=== PATIENT | female | born 1930 | race Caucasian/White ===

== ENCOUNTER 2018-03-10 22:30 | Inpatient (IN) | payer OTHER, MEDICARE ==
[~2018-03-10] VITALS: Ht 157.5 cm; Wt 69.4 kg
[~2018-03-10 22:30] MED LIST: ACET-73 PO; ALPR0.25 PO; AMLO2.5T2 PO; CYCL-10 PO; LISI40TA4 PO; MORPHINE 4 MG/ML INJ. SYRINGE IVP ONE; PARO-41 PO; ZOLP10TA2 PO
[2018-03-10 23:23] VITALS: BP_SYST 132
[2018-03-10] MEDS ORDERED: NACL 0.9% 1,000 ML IV ONE (23:45)
[2018-03-10] MEDS ORDERED: PANTOPRAZOLE SODIUM 40 MG/VIAL (PROTONIX) IVP ONE (23:45)
[2018-03-11] MEDS ORDERED: LATA2.5D2 OP (00:09)
[2018-03-11] MEDS ORDERED: TEMA15CA5 PO (00:09)
[2018-03-11] MEDS ORDERED: AMLO5TAB4 PO (00:09)
[2018-03-11] MEDS ORDERED: ASPI-1153 PO (00:09)
[2018-03-11] MEDS ORDERED: FLAX100031 PO (00:09)
[2018-03-11] MEDS ORDERED: METO50TA7 PO (00:09)
[2018-03-11 00:21] LABS: BASOPHILS % (AUTO) 0.5 % (0.0-2.0); EOSINOPHILS % (AUTO) 0.3 % (0.0-4.0); HEMATOCRIT 23.4 % (36-48); HEMOGLOBIN 7.2 g/dL (12.0-16.0); LYMPHOCYTES # (AUTO) 1.3 K/uL (1.0-5.5); LYMPHOCYTES % (AUTO) 15.3 % (20.5-51.5); MEAN CORPUSCULAR HEMOGLOBIN 29 pg (27-31); MEAN CORPUSCULAR HGB CONC 31 % (32-36); MEAN CORPUSCULAR VOLUME 95 fL (79.0-98.0); MONOCYTES # (AUTO) 0.7 K/uL (0.0-1.0); MONOCYTES % (AUTO) 7.8 % (1.7-9.3); NEUTROPHILS # (AUTO) 6.5 K/uL (1.8-7.7); NEUTROPHILS % (AUTO) 76.1 % (40.0-70.0); PLATELET COUNT (AUTO) 285 K/uL (130-430); RED BLOOD CELL COUNT(AUTO) 2.46 MIL/uL (4.2-6.2); RED CELL DISTRIBUTION WIDTH 14.2 % (9.0-15.0); WHITE BLOOD COUNT (AUTO) 8.5 K/uL (4.8-10.8)
[2018-03-11 00:28] LABS: ANION GAP 8 (5-15); CALCIUM 8.4 mg/dL (8.4-11.0); CHLORIDE 107 mmol/L (98-107); CREATININE 0.64 mg/dL (0.55-1.30); GLUCOSE 120 mg/dL (70-99); POTASSIUM 3.8 mmol/L (3.5-5.1); SODIUM SERUM 141 mmol/L (136-145); UREA NITROGEN, BLOOD 36 mg/dL (8-21)
[2018-03-11 00:34] LABS: ALANINE AMINOTRANSFERASE 13 U/L (12-78); ALBUMIN 3.1 g/dL (3.4-4.8); ASPARTATE AMINOTRANSFERASE 15 U/L (10-37); LIPASE 148 U/L (73-393); TOTAL BILIRUBIN 0.4 mg/dL (0.0-1.0)
[2018-03-11] MEDS ORDERED: ACETAMINOPHEN 325 MG TABLET PO PRN (01:00)
[2018-03-11] MEDS ORDERED: ONDANSETRON HCL 4 MG/2 ML VIAL IVP PRN (01:00)
[2018-03-11] MEDS ORDERED: MORPHINE 4 MG/ML INJ. SYRINGE IVP ONE (01:00)
[2018-03-11 02:07] VITALS: BP_SYST 118
[2018-03-11] MEDS: NACL 0.9% 1,000 ML IV SCH ×3 (03:49→18:30)
[2018-03-11 07:00] VITALS: BP_SYST 156
[2018-03-11] MEDS: PANTOPRAZOLE SODIUM 40 MG/VIAL (PROTONIX) IVP SCH (08:05)
[2018-03-11 09:19] LABS: BASOPHILS % (AUTO) 0.3 % (0.0-2.0); EOSINOPHILS % (AUTO) 0.4 % (0.0-4.0); HEMATOCRIT 25.7 % (36-48); HEMOGLOBIN 8.4 g/dL (12.0-16.0); LYMPHOCYTES # (AUTO) 1.2 K/uL (1.0-5.5); MEAN CORPUSCULAR HEMOGLOBIN 31 pg (27-31); MEAN CORPUSCULAR HGB CONC 33 % (32-36); MEAN CORPUSCULAR VOLUME 94 fL (79.0-98.0); MONOCYTES # (AUTO) 0.6 K/uL (0.0-1.0); MONOCYTES % (AUTO) 7.2 % (1.7-9.3); NEUTROPHILS # (AUTO) 7.1 K/uL (1.8-7.7); NEUTROPHILS % (AUTO) 79.1 % (40.0-70.0); PLATELET COUNT (AUTO) 243 K/uL (130-430); RED BLOOD CELL COUNT(AUTO) 2.74 MIL/uL (4.2-6.2); WHITE BLOOD COUNT (AUTO) 8.9 K/uL (4.8-10.8)
[2018-03-11 09:44] LABS: ANION GAP 7 (5-15); CALCIUM 8.1 mg/dL (8.4-11.0); CHLORIDE 108 mmol/L (98-107); CREATININE 0.51 mg/dL (0.55-1.30); GLUCOSE 121 mg/dL (70-99); SODIUM SERUM 142 mmol/L (136-145); UREA NITROGEN, BLOOD 27 mg/dL (8-21)
[2018-03-11 09:45] LABS: ALANINE AMINOTRANSFERASE 16 U/L (12-78); ALBUMIN 3.1 g/dL (3.4-4.8); ASPARTATE AMINOTRANSFERASE 14 U/L (10-37); TOTAL BILIRUBIN 0.6 mg/dL (0.0-1.0)
[2018-03-11 11:29] VITALS: BP_SYST 138
[2018-03-11] MEDS: MORPHINE 2 MG/ML INJ. SYRINGE IVP PRN (11:39)
[2018-03-11 15:42] VITALS: BP_SYST 134
[2018-03-11] MEDS ORDERED: BISACODYL 5 MG TABLET.DR (DULCOLAX) PO ONE (17:00)
[2018-03-11] MEDS ORDERED: GOLYTELY / COLYTE SOLUTION 4 LITERS PO ONE (18:00)
[2018-03-11 20:00] VITALS: BP_SYST 135
[2018-03-11] MEDS ORDERED: NA PHOS,M-B/NA PHOS,DI-BA 118 ML (FLEET ENEMA) RC SCH (23:00)
[2018-03-12] MEDS: PANTOPRAZOLE SODIUM 40 MG/VIAL (PROTONIX) IVP SCH ×3 (00:29→22:35)
[2018-03-12 00:41] VITALS: BP_SYST 144
[2018-03-12] MEDS: MORPHINE 2 MG/ML INJ. SYRINGE IVP PRN (03:33)
[2018-03-12] MEDS ORDERED: SIMETHICONE 40 MG/0.6 ML ML ONE (07:12)
[2018-03-12] MEDS ORDERED: MIDAZOLAM HCL 5 MG/5 ML VIAL ONE (07:12)
[2018-03-12] MEDS ORDERED: MEPERIDINE HCL/PF 100 MG/ML AMP ONE (07:13)
[2018-03-12 07:22] LABS: INR 1.1 (0.8-1.2); PROTHROMBIN TIME 10.9 SECS (9.5-12.5); TOTAL IRON BIND. CAPACITY 126 ug/dL (250-450)
[2018-03-12 07:33] LABS: ALBUMIN 2.6 g/dL (3.4-4.8); BILIRUBIN,DIRECT 0.2 mg/dL (0.0-0.3); THYROID STIMULATING HORMONE 0.59 uIu/mL (0.34-4.82); TOTAL BILIRUBIN 0.6 mg/dL (0.0-1.0)
[2018-03-12 07:40] LABS: BASOPHILS % (AUTO) 0.3 % (0.0-2.0); EOSINOPHILS % (AUTO) 0.3 % (0.0-4.0); HEMATOCRIT 23.9 % (36-48); HEMOGLOBIN 7.7 g/dL (12.0-16.0); LYMPHOCYTES # (AUTO) 0.7 K/uL (1.0-5.5); LYMPHOCYTES % (AUTO) 6.4 % (20.5-51.5); MEAN CORPUSCULAR HEMOGLOBIN 31 pg (27-31); MEAN CORPUSCULAR HGB CONC 32 % (32-36); MEAN CORPUSCULAR VOLUME 95 fL (79.0-98.0); MONOCYTES # (AUTO) 0.6 K/uL (0.0-1.0); MONOCYTES % (AUTO) 6.3 % (1.7-9.3); NEUTROPHILS # (AUTO) 8.9 K/uL (1.8-7.7); NEUTROPHILS % (AUTO) 86.7 % (40.0-70.0); PLATELET COUNT (AUTO) 188 K/uL (130-430); RED BLOOD CELL COUNT(AUTO) 2.52 MIL/uL (4.2-6.2); RED CELL DISTRIBUTION WIDTH 15.5 % (9.0-15.0); WHITE BLOOD COUNT (AUTO) 10.2 K/uL (4.8-10.8)
[2018-03-12] MEDS: NACL 0.9% 1,000 ML IV SCH ×2 (08:00→22:10)
[2018-03-12 08:24] VITALS: BP_SYST 120; BP_SYST 127
[2018-03-12] MEDS ORDERED: METOPROLOL TARTRATE 5 MG/5 ML VIAL IVP ONE (08:45)
[2018-03-12] MEDS ORDERED: DIGOXIN 0.5 MG/2 ML AMP IVP ONE (08:45)
[2018-03-12] MEDS ORDERED: DIGOXIN 0.5 MG/2 ML AMP ONE (08:51)
[2018-03-12] MEDS ORDERED: METOPROLOL SUCCINATE 50 MG TAB.SR.24H (TOPROL XL) PO ONE (10:00)
[2018-03-12 11:33] VITALS: BP_SYST 110
[2018-03-12] MEDS ORDERED: IOHEXOL 100 ML IV ONE (12:28)
[2018-03-12 15:30] VITALS: BP_SYST 106
[2018-03-12 20:05] VITALS: BP_SYST 135
[2018-03-12] MEDS: ZOLPIDEM TARTRATE 5 MG TABLET PO SCH (21:00)
[2018-03-12] MEDS: PARoxetine HCL 20 MG TABLET PO SCH (22:36)
[2018-03-12] MEDS: TEMAZEPAM 15 MG CAPSULE PO SCH (22:36)
[2018-03-12 23:40] VITALS: BP_SYST 115
[2018-03-13] VITALS (7 sets, daily range): BP systolic 108–128
[2018-03-13] MEDS: NACL 0.9% 1,000 ML IV SCH ×3 (03:00→21:59)
[2018-03-13 07:05] LABS: BASOPHILS % (AUTO) 0.3 % (0.0-2.0); EOSINOPHILS # (AUTO) 0.1 K/uL (0.0-0.4); EOSINOPHILS % (AUTO) 0.9 % (0.0-4.0); HEMATOCRIT 22.4 % (36-48); HEMOGLOBIN 7.1 g/dL (12.0-16.0); LYMPHOCYTES # (AUTO) 0.7 K/uL (1.0-5.5); LYMPHOCYTES % (AUTO) 9.8 % (20.5-51.5); MEAN CORPUSCULAR HEMOGLOBIN 30 pg (27-31); MEAN CORPUSCULAR HGB CONC 32 % (32-36); MEAN CORPUSCULAR VOLUME 95 fL (79.0-98.0); MONOCYTES # (AUTO) 0.7 K/uL (0.0-1.0); MONOCYTES % (AUTO) 10.2 % (1.7-9.3); NEUTROPHILS # (AUTO) 5.7 K/uL (1.8-7.7); NEUTROPHILS % (AUTO) 78.8 % (40.0-70.0); PLATELET COUNT (AUTO) 207 K/uL (130-430); RED BLOOD CELL COUNT(AUTO) 2.35 MIL/uL (4.2-6.2); RED CELL DISTRIBUTION WIDTH 14.8 % (9.0-15.0); WHITE BLOOD COUNT (AUTO) 7.2 K/uL (4.8-10.8)
[2018-03-13 07:13] LABS: ANION GAP 5 (5-15); CALCIUM 7.5 mg/dL (8.4-11.0); CHLORIDE 105 mmol/L (98-107); CREATININE 0.47 mg/dL (0.55-1.30); GLUCOSE 116 mg/dL (70-99); POTASSIUM 3.3 mmol/L (3.5-5.1); SODIUM SERUM 139 mmol/L (136-145); UREA NITROGEN, BLOOD 9 mg/dL (8-21)
[2018-03-13] MEDS: METOPROLOL SUCCINATE 50 MG TAB.SR.24H (TOPROL XL) PO SCH (09:00)
[2018-03-13] MEDS: PANTOPRAZOLE SODIUM 40 MG/VIAL (PROTONIX) IVP SCH ×2 (09:33→21:55)
[2018-03-13] MEDS ORDERED: POTASSIUM CHLORIDE 30 MEQ in NS 250 ML IV ONE (11:30)
[2018-03-13] MEDS ORDERED: MEPERIDINE HCL/PF 25 MG/ML DISP.SYRIN ONE ×3 (11:56→11:57)
[2018-03-13] MEDS ORDERED: MIDAZOLAM HCL 5 MG/5 ML VIAL ONE ×2 (11:57→11:58)
[2018-03-13] MEDS ORDERED: SIMETHICONE 40 MG/0.6 ML ML ONE (11:58)
[2018-03-13 12:07] LABS: FOLATE (FOLIC ACID) 7.9 ng/mL (>3.0)
[2018-03-13] MEDS: ZOLPIDEM TARTRATE 5 MG TABLET PO SCH (21:56)
[2018-03-13] MEDS: TEMAZEPAM 15 MG CAPSULE PO SCH (21:57)
[2018-03-13] MEDS: PARoxetine HCL 20 MG TABLET PO SCH (21:57)
[2018-03-14 00:31] VITALS: BP_SYST 103
[2018-03-14 06:45] LABS: BASOPHILS % (AUTO) 0.7 % (0.0-2.0); EOSINOPHILS # (AUTO) 0.1 K/uL (0.0-0.4); HEMATOCRIT 22.5 % (36-48); HEMOGLOBIN 7.1 g/dL (12.0-16.0); LYMPHOCYTES # (AUTO) 0.6 K/uL (1.0-5.5); LYMPHOCYTES % (AUTO) 8.4 % (20.5-51.5); MEAN CORPUSCULAR HEMOGLOBIN 30 pg (27-31); MEAN CORPUSCULAR HGB CONC 31 % (32-36); MEAN CORPUSCULAR VOLUME 97 fL (79.0-98.0); MONOCYTES # (AUTO) 0.8 K/uL (0.0-1.0); MONOCYTES % (AUTO) 11.2 % (1.7-9.3); NEUTROPHILS # (AUTO) 5.5 K/uL (1.8-7.7); NEUTROPHILS % (AUTO) 77.7 % (40.0-70.0); PLATELET COUNT (AUTO) 200 K/uL (130-430); RED BLOOD CELL COUNT(AUTO) 2.33 MIL/uL (4.2-6.2); RED CELL DISTRIBUTION WIDTH 15.1 % (9.0-15.0)
[2018-03-14 06:57] LABS: ANION GAP 5 (5-15); CALCIUM 7.9 mg/dL (8.4-11.0); CHLORIDE 106 mmol/L (98-107); CREATININE 0.38 mg/dL (0.55-1.30); GLUCOSE 119 mg/dL (70-99); SODIUM SERUM 139 mmol/L (136-145); UREA NITROGEN, BLOOD 13 mg/dL (8-21)
[2018-03-14 08:14] VITALS: BP_SYST 118
[2018-03-14] MEDS: PANTOPRAZOLE SODIUM 40 MG/VIAL (PROTONIX) IVP SCH (08:21)
[2018-03-14] MEDS: METOPROLOL SUCCINATE 50 MG TAB.SR.24H (TOPROL XL) PO SCH (08:22)
[2018-03-14] MEDS: NACL 0.9% 1,000 ML IV SCH (08:22)
[2018-03-14 12:59] VITALS: BP_SYST 112
[2018-03-14 17:03] VITALS: BP_SYST 128
== END 2018-03-14 18:51 | disposition home or self-care (01) | DRG 378 ==
LOC: SED 22:30 → STU 03-11 00:57
PROVIDERS: ADMIT Internal Medicine; ATTEND Internal Medicine Hospice and Palliative Medicine
PROC: 30233N1 Transfusion of Nonautologous Red Blood Cells into Peripheral Vein, Percutaneous Approach (ICD-10-PCS; principal; 2018-03-11)
PROC: 0DB98ZX Excision of Duodenum, Via Natural or Artificial Opening Endoscopic, Diagnostic (ICD-10-PCS; 2018-03-13)
PROC: 0DBN8ZZ Excision of Sigmoid Colon, Via Natural or Artificial Opening Endoscopic (ICD-10-PCS; 2018-03-13)
PROC: 0DB68ZX Excision of Stomach, Via Natural or Artificial Opening Endoscopic, Diagnostic (ICD-10-PCS; 2018-03-13 12:30)
DX: K62.5 Hemorrhage of anus and rectum (principal); E44.1 Mild protein-calorie malnutrition; K29.71 Gastritis, unspecified, with bleeding; K64.8 Other hemorrhoids; K63.5 Polyp of colon; K57.30 Diverticulosis of large intestine without perforation or abscess without bleeding; I10 Essential (primary) hypertension; R16.0 Hepatomegaly, not elsewhere classified; D50.0 Iron deficiency anemia secondary to blood loss (chronic); E66.9 Obesity, unspecified; H40.9 Unspecified glaucoma; I48.2 Chronic atrial fibrillation; K59.00 Constipation, unspecified; M19.90 Unspecified osteoarthritis, unspecified site; Z53.8 Procedure and treatment not carried out for other reasons; I48.0 Paroxysmal atrial fibrillation; R09.02 Hypoxemia; M81.0 Age-related osteoporosis without current pathological fracture; Z79.82 Long term (current) use of aspirin; Z80.6 Family history of leukemia; Z86.73 Personal history of transient ischemic attack (TIA), and cerebral infarction without residual deficits; Z87.891 Personal history of nicotine dependence; Z88.6 Allergy status to analgesic agent; Z88.8 Allergy status to other drugs, medicaments and biological substances; Z79.899 Other long term (current) drug therapy; Z68.28 Body mass index [BMI] 28.0-28.9, adult
CPT/HCPCS: 36415; 43239; 45380; 74270-TC; 76700-TC; 80048; 80053; 80076; 82105; 82607; 82728; 82746; 83540-TC; 83550-TC; 83615-TC; 83690-TC; 84443-TC; 85025; 85610-TC; 86886; 86900; 86901; 86920; 87081; 88305; 88312; 88313; 93005; 96361; 96374; 96375; 99285; C9113; J1160; J2175; J2250; J2270; J2405; J3480; J3490; J7030; J7050; P9021; Q9967

== ENCOUNTER 2018-03-15 11:52 | Inpatient (IN) | payer OTHER, MEDICARE ==
[~2018-03-15] VITALS: Ht 157.5 cm; Wt 79.4 kg
[~2018-03-15 11:52] MED LIST changes: +AMLO5TAB4 PO; +FLAX100031 PO; +LATA2.5D2 OP; +METO50TA7 PO; -MORPHINE 4 MG/ML INJ. SYRINGE IVP ONE; +TEMA15CA5 PO
[2018-03-15 12:04] VITALS: BP_SYST 144
[2018-03-15] MEDS ORDERED: NACL 0.9% 1,000 ML IV ONE (12:30)
[2018-03-15 12:53] LABS: BASOPHILS % (AUTO) 0.2 % (0.0-2.0); EOSINOPHILS % (AUTO) 0.2 % (0.0-4.0); HEMATOCRIT 26.5 % (36-48); HEMOGLOBIN 8.6 g/dL (12.0-16.0); LYMPHOCYTES # (AUTO) 0.7 K/uL (1.0-5.5); LYMPHOCYTES % (AUTO) 7.5 % (20.5-51.5); MEAN CORPUSCULAR HEMOGLOBIN 31 pg (27-31); MEAN CORPUSCULAR HGB CONC 32 % (32-36); MEAN CORPUSCULAR VOLUME 96 fL (79.0-98.0); NEUTROPHILS # (AUTO) 7.8 K/uL (1.8-7.7); NEUTROPHILS % (AUTO) 81.1 % (40.0-70.0); PLATELET COUNT (AUTO) 310 K/uL (130-430); RED BLOOD CELL COUNT(AUTO) 2.77 MIL/uL (4.2-6.2); WHITE BLOOD COUNT (AUTO) 9.5 K/uL (4.8-10.8)
[2018-03-15 12:59] LABS: RED CELL DISTRIBUTION WIDTH 15.2 % (9.0-15.0)
[2018-03-15 13:03] LABS: ANION GAP 5 (5-15); CALCIUM 8.2 mg/dL (8.4-11.0); CHLORIDE 109 mmol/L (98-107); CREATININE 0.57 mg/dL (0.55-1.30); GLUCOSE 146 mg/dL (70-99); POTASSIUM 4.1 mmol/L (3.5-5.1); SODIUM SERUM 141 mmol/L (136-145); UREA NITROGEN, BLOOD 21 mg/dL (8-21)
[2018-03-15 13:08] LABS: INR 1.3 (0.8-1.2); PROTHROMBIN TIME 12.8 SECS (9.5-12.5)
[2018-03-15 13:10] LABS: ALANINE AMINOTRANSFERASE 13 U/L (12-78); ALBUMIN 2.6 g/dL (3.4-4.8); ASPARTATE AMINOTRANSFERASE 12 U/L (10-37); TOTAL BILIRUBIN 0.6 mg/dL (0.0-1.0)
[2018-03-15] MEDS ORDERED: PIPERACILLIN/TAZO 3.375 GM in NS 50 ML IV ONE (13:15)
[2018-03-15] MEDS ORDERED: CLOPIDOGREL BISULFATE 75 MG TABLET PO ONE (13:15)
[2018-03-15] MEDS ORDERED: PIPERACILLIN/TAZOBACTAM 3.375 GM/VIAL (ZOSYN) IV ONE (13:26)
[2018-03-15] MEDS ORDERED: NACL 0.9% 2,500 ML IV ONE (13:30)
[2018-03-15] MEDS ORDERED: NACL 0.9% 1,500 ML IV ONE (14:15)
[2018-03-15 15:20] VITALS: BP_SYST 131
[2018-03-15] MEDS ORDERED: ALBUTEROL SULFATE 0.083% 2.5 MG/3 ML VIAL.NEB INH PRN (17:30)
[2018-03-15] MEDS ORDERED: IPRATROPIUM BROM 0.5 MG/2.5 ML VIAL.NEB (ATROVENT) INH PRN (17:30)
[2018-03-15 17:35] VITALS: BP_SYST 131
[2018-03-15] MEDS: ALBUTEROL SULFATE 0.083% 2.5 MG/3 ML VIAL.NEB INH SCH (19:40)
[2018-03-15] MEDS: IPRATROPIUM BROM 0.5 MG/2.5 ML VIAL.NEB (ATROVENT) INH SCH (19:40)
[2018-03-15 19:52] VITALS: BP_SYST 105
[2018-03-15] MEDS ORDERED: cefTRIAXone 1 GM IVPB PREMIX 50 ML IV ONE (21:20)
[2018-03-15] MEDS ORDERED: AZITHROMYCIN 500 MG/VIAL (ZITHROMAX) IV ONE (21:21)
[2018-03-15] MEDS: cefTRIAXone 1 GM in D5W 50 ML IV SCH (21:40)
[2018-03-15] MEDS: AZITHROMYCIN 500 MG in NS 250 ML IV SCH (23:30)
[2018-03-16] MEDS: IPRATROPIUM BROM 0.5 MG/2.5 ML VIAL.NEB (ATROVENT) INH SCH ×4 (00:39→19:52)
[2018-03-16] MEDS: ALBUTEROL SULFATE 0.083% 2.5 MG/3 ML VIAL.NEB INH SCH ×4 (00:40→19:52)
[2018-03-16 01:50] VITALS: BP_SYST 118
[2018-03-16 06:58] LABS: ALANINE AMINOTRANSFERASE 11 U/L (12-78); ALBUMIN 2.2 g/dL (3.4-4.8); ANION GAP 5 (5-15); ASPARTATE AMINOTRANSFERASE 8 U/L (10-37); CALCIUM 7.9 mg/dL (8.4-11.0); CHLORIDE 110 mmol/L (98-107); CREATININE 0.48 mg/dL (0.55-1.30); GLUCOSE 119 mg/dL (70-99); POTASSIUM 4.1 mmol/L (3.5-5.1); SODIUM SERUM 143 mmol/L (136-145); TOTAL BILIRUBIN 0.3 mg/dL (0.0-1.0); UREA NITROGEN, BLOOD 18 mg/dL (8-21)
[2018-03-16 07:16] LABS: BASOPHILS % (AUTO) 0.1 % (0.0-2.0); EOSINOPHILS # (AUTO) 0.2 K/uL (0.0-0.4); HEMOGLOBIN 8.1 g/dL (12.0-16.0); LYMPHOCYTES # (AUTO) 0.7 K/uL (1.0-5.5); LYMPHOCYTES % (AUTO) 9.1 % (20.5-51.5); MEAN CORPUSCULAR HEMOGLOBIN 31 pg (27-31); MEAN CORPUSCULAR HGB CONC 32 % (32-36); MEAN CORPUSCULAR VOLUME 97 fL (79.0-98.0); MONOCYTES # (AUTO) 0.9 K/uL (0.0-1.0); MONOCYTES % (AUTO) 11.6 % (1.7-9.3); NEUTROPHILS # (AUTO) 6.1 K/uL (1.8-7.7); NEUTROPHILS % (AUTO) 77.2 % (40.0-70.0); PLATELET COUNT (AUTO) 223 K/uL (130-430); RED BLOOD CELL COUNT(AUTO) 2.57 MIL/uL (4.2-6.2); RED CELL DISTRIBUTION WIDTH 16.1 % (9.0-15.0); WHITE BLOOD COUNT (AUTO) 7.9 K/uL (4.8-10.8)
[2018-03-16 08:00] VITALS: BP_SYST 138
[2018-03-16] MEDS ORDERED: FUROSEMIDE 20 MG/2 ML VIAL IVP ONE (08:45)
[2018-03-16] MEDS ORDERED: NACL 0.9% 1,000 ML IV SCH (09:00)
[2018-03-16] MEDS ORDERED: ACETAMINOPHEN 650 MG/20.3 ML UDC PO PRN (10:15)
[2018-03-16] MEDS ORDERED: ONDANSETRON HCL 4 MG/2 ML VIAL IVP PRN (10:15)
[2018-03-16 12:13] VITALS: BP_SYST 112
[2018-03-16 13:50] LABS: BILIRUBIN,URINE NEGATIVE (NEGATIVE); BLOOD, URINE 2+ (NEGATIVE); COLOR,URINE YELLOW (YELLOW); GLUCOSE,URINE NEGATIVE (NEGATIVE); KETONES,URINE NEGATIVE (NEGATIVE); LEUKOCYTE ESTERASE ,URINE 2+ (NEGATIVE); NITRITE, URINE NEGATIVE (NEGATIVE); PH,URINE 6.5 (5.0-8.0); PROTEIN URINE NEGATIVE (NEGATIVE); UROBILINOGEN,URINE 0.2 (0.2-1.0)
[2018-03-16 14:11] LABS: CLARITY/URINE SLIGHTLY HAZY (CLEAR)
[2018-03-16 14:24] LABS: BACTERIA,URINE MODERATE /HPF (None Seen); MUCUS,URINE 1+ /LPF (None Seen)
[2018-03-16 16:00] VITALS: BP_SYST 123
[2018-03-16] MEDS ORDERED: METOPROLOL SUCCINATE 50 MG TAB.SR.24H (TOPROL XL) PO ONE (18:30)
[2018-03-16] MEDS: AZITHROMYCIN 500 MG in NS 250 ML IV SCH (18:32)
[2018-03-16 19:52] VITALS: BP_SYST 101
[2018-03-16] MEDS: guaiFENesin ER 600 MG TAB PO SCH (20:29)
[2018-03-16] MEDS: cefTRIAXone 1 GM in D5W 50 ML IV SCH (20:29)
[2018-03-16] MEDS: FUROSEMIDE 20 MG/2 ML VIAL IVP SCH (20:30)
[2018-03-16] MEDS ORDERED: ALPRAZolam 0.25 MG TABLET PO PRN (22:45)
[2018-03-16 23:20] VITALS: BP_SYST 96
[2018-03-17] MEDS: ALBUTEROL SULFATE 0.083% 2.5 MG/3 ML VIAL.NEB INH SCH ×4 (01:00→19:51)
[2018-03-17] MEDS: IPRATROPIUM BROM 0.5 MG/2.5 ML VIAL.NEB (ATROVENT) INH SCH ×4 (01:00→19:51)
[2018-03-17 06:03] LABS: BASOPHILS % (AUTO) 0.3 % (0.0-2.0); EOSINOPHILS # (AUTO) 0.3 K/uL (0.0-0.4); EOSINOPHILS % (AUTO) 3.5 % (0.0-4.0); HEMATOCRIT 27.8 % (36-48); HEMOGLOBIN 8.9 g/dL (12.0-16.0); LYMPHOCYTES # (AUTO) 0.7 K/uL (1.0-5.5); LYMPHOCYTES % (AUTO) 9.5 % (20.5-51.5); MEAN CORPUSCULAR HEMOGLOBIN 31 pg (27-31); MEAN CORPUSCULAR HGB CONC 32 % (32-36); MEAN CORPUSCULAR VOLUME 96 fL (79.0-98.0); MONOCYTES # (AUTO) 0.8 K/uL (0.0-1.0); MONOCYTES % (AUTO) 10.7 % (1.7-9.3); NEUTROPHILS # (AUTO) 5.9 K/uL (1.8-7.7); PLATELET COUNT (AUTO) 183 K/uL (130-430); WHITE BLOOD COUNT (AUTO) 7.7 K/uL (4.8-10.8)
[2018-03-17 06:13] LABS: ALANINE AMINOTRANSFERASE 12 U/L (12-78); ALBUMIN 2.3 g/dL (3.4-4.8); ASPARTATE AMINOTRANSFERASE 8 U/L (10-37); CHLORIDE 110 mmol/L (98-107); CREATININE 0.46 mg/dL (0.55-1.30); GLUCOSE 110 mg/dL (70-99); POTASSIUM 3.9 mmol/L (3.5-5.1); SODIUM SERUM 142 mmol/L (136-145); TOTAL BILIRUBIN 0.4 mg/dL (0.0-1.0); UREA NITROGEN, BLOOD 12 mg/dL (8-21)
[2018-03-17 07:29] LABS: ANION GAP < 1 (5-15)
[2018-03-17 08:30] VITALS: BP_SYST 151
[2018-03-17] MEDS ORDERED: ALPRAZolam 0.25 MG TABLET PO SCH (08:45)
[2018-03-17] MEDS ORDERED: amLODIPine BESYLATE 5 MG TABLET PO SCH (09:00)
[2018-03-17] MEDS: METOPROLOL SUCCINATE 50 MG TAB.SR.24H (TOPROL XL) PO SCH ×2 (09:00→10:03)
[2018-03-17] MEDS ORDERED: ACETAMINOPHEN 325 MG TABLET PO PRN (09:00)
[2018-03-17] MEDS: FUROSEMIDE 20 MG/2 ML VIAL IVP SCH ×2 (10:02→20:28)
[2018-03-17] MEDS: POTASSIUM CHLORIDE 20 MEQ/PKT PACKET PO SCH (10:02)
[2018-03-17] MEDS: LACTULOSE 20 GM/30 ML UDC PO SCH ×2 (10:02→20:29)
[2018-03-17] MEDS: guaiFENesin ER 600 MG TAB PO SCH ×2 (10:02→20:28)
[2018-03-17] MEDS: LISINOPRIL 20 MG TABLET PO SCH (10:03)
[2018-03-17] MEDS: amLODIPine BESYLATE 5 MG TABLET PO SCH (10:04)
[2018-03-17] MEDS: ENOXAPARIN SODIUM 30 MG/0.3 ML SYRINGE SUBCUT SCH (10:09)
[2018-03-17 12:15] VITALS: BP_SYST 123
[2018-03-17 16:06] VITALS: BP_SYST 135
[2018-03-17 19:05] VITALS: BP_SYST 114
[2018-03-17] MEDS: AZITHROMYCIN 500 MG in NS 250 ML IV SCH (20:04)
[2018-03-17] MEDS: cefTRIAXone 1 GM in D5W 50 ML IV SCH (20:30)
[2018-03-17] MEDS ORDERED: LATANOPROST 2.5 ML DROPS (XALATAN) OP SCH (21:00)
[2018-03-17] MEDS ORDERED: ZOLPIDEM TARTRATE 5 MG TABLET PO SCH (21:00)
[2018-03-17] MEDS ORDERED: CYCLOBENZAPRINE HCL 10 MG TABLET (FLEXERIL) PO SCH (21:00)
[2018-03-17] MEDS ORDERED: TEMAZEPAM 15 MG CAPSULE PO SCH (21:00)
[2018-03-17] MEDS ORDERED: PARoxetine HCL 20 MG TABLET PO SCH (21:00)
[2018-03-18] MEDS: ALBUTEROL SULFATE 0.083% 2.5 MG/3 ML VIAL.NEB INH SCH ×2 (00:30→07:08)
[2018-03-18] MEDS: IPRATROPIUM BROM 0.5 MG/2.5 ML VIAL.NEB (ATROVENT) INH SCH ×2 (00:30→07:08)
[2018-03-18 07:47] LABS: BASOPHILS % (AUTO) 0.2 % (0.0-2.0); EOSINOPHILS # (AUTO) 0.2 K/uL (0.0-0.4); EOSINOPHILS % (AUTO) 3.2 % (0.0-4.0); HEMATOCRIT 27.3 % (36-48); HEMOGLOBIN 8.6 g/dL (12.0-16.0); LYMPHOCYTES # (AUTO) 0.9 K/uL (1.0-5.5); MEAN CORPUSCULAR HEMOGLOBIN 30 pg (27-31); MEAN CORPUSCULAR HGB CONC 32 % (32-36); MEAN CORPUSCULAR VOLUME 96 fL (79.0-98.0); MONOCYTES # (AUTO) 0.7 K/uL (0.0-1.0); MONOCYTES % (AUTO) 9.6 % (1.7-9.3); NEUTROPHILS # (AUTO) 5.6 K/uL (1.8-7.7); PLATELET COUNT (AUTO) 175 K/uL (130-430); RED BLOOD CELL COUNT(AUTO) 2.84 MIL/uL (4.2-6.2); RED CELL DISTRIBUTION WIDTH 15.6 % (9.0-15.0); WHITE BLOOD COUNT (AUTO) 7.4 K/uL (4.8-10.8)
[2018-03-18 08:08] LABS: CALCIUM 8.2 mg/dL (8.4-11.0); CHLORIDE 107 mmol/L (98-107); CREATININE 0.44 mg/dL (0.55-1.30); GLUCOSE 93 mg/dL (70-99); POTASSIUM 3.9 mmol/L (3.5-5.1); SODIUM SERUM 142 mmol/L (136-145); UREA NITROGEN, BLOOD 9 mg/dL (8-21)
[2018-03-18 08:25] LABS: ANION GAP < 3 (5-15)
[2018-03-18] MEDS: FUROSEMIDE 20 MG/2 ML VIAL IVP SCH (08:34)
[2018-03-18] MEDS: LACTULOSE 20 GM/30 ML UDC PO SCH (08:34)
[2018-03-18] MEDS: POTASSIUM CHLORIDE 20 MEQ/PKT PACKET PO SCH (08:34)
[2018-03-18] MEDS: LISINOPRIL 20 MG TABLET PO SCH (08:34)
[2018-03-18] MEDS: METOPROLOL SUCCINATE 50 MG TAB.SR.24H (TOPROL XL) PO SCH ×2 (08:35→08:37)
[2018-03-18] MEDS: amLODIPine BESYLATE 5 MG TABLET PO SCH (08:36)
[2018-03-18] MEDS: guaiFENesin ER 600 MG TAB PO SCH (08:36)
[2018-03-18] MEDS: ENOXAPARIN SODIUM 30 MG/0.3 ML SYRINGE SUBCUT SCH (08:37)
[2018-03-18 08:48] VITALS: BP_SYST 132
[2018-03-18 12:06] VITALS: BP_SYST 134
[2018-03-18 12:44] VITALS: BP_SYST 134
== END 2018-03-18 16:30 | DRG 291 ==
LOC: SED 11:52 → STU 13:58
PROVIDERS: ADMIT Internal Medicine Hospice and Palliative Medicine; ATTEND Internal Medicine Hospice and Palliative Medicine
PROC: 30233N1 Transfusion of Nonautologous Red Blood Cells into Peripheral Vein, Percutaneous Approach (ICD-10-PCS; principal; 2018-03-16)
DX: I11.0 Hypertensive heart disease with heart failure (principal); J18.1 Lobar pneumonia, unspecified organism; I50.31 Acute diastolic (congestive) heart failure; J96.01 Acute respiratory failure with hypoxia; M19.90 Unspecified osteoarthritis, unspecified site; M81.0 Age-related osteoporosis without current pathological fracture; E78.5 Hyperlipidemia, unspecified; D64.9 Anemia, unspecified; R91.1 Solitary pulmonary nodule; J40 Bronchitis, not specified as acute or chronic; I48.0 Paroxysmal atrial fibrillation; I48.2 Chronic atrial fibrillation; H40.9 Unspecified glaucoma; Z88.6 Allergy status to analgesic agent; Z86.73 Personal history of transient ischemic attack (TIA), and cerebral infarction without residual deficits; Z88.5 Allergy status to narcotic agent; Z88.8 Allergy status to other drugs, medicaments and biological substances; Z79.899 Other long term (current) drug therapy; Z87.891 Personal history of nicotine dependence
CPT/HCPCS: 36415; 36600; 71045; 80048; 80053; 81000-TC; 82378; 82803-TC; 83605; 83880; 84484; 85025; 85610-TC; 85730-TC; 86886; 86900; 86901; 86920; 87040-TC; 87081; 87086; 93005; 93306; 93970; 94640; 94760; 96361; 96365; 99285; J0456; J0696; J1650; J1940; J2543; J7030; J7040; J7050; J7060; J7613; P9021

== ENCOUNTER 2020-03-01 17:16 | Observation (INO) | payer OTHER, BC, SELFPAY ==
[~2020-03-01] VITALS: Ht 157.5 cm; Wt 72.1 kg
[2020-03-01 17:31] VITALS: BP_SYST 131
[2020-03-01] MEDS ORDERED: FURO-150 PO (17:54)
[2020-03-01 21:38] LABS: BASOPHILS # (AUTO) 0.1 K/uL (0.0-0.2); EOSINOPHILS # (AUTO) 0.2 K/uL (0.0-0.4); EOSINOPHILS % (AUTO) 2.5 % (0.0-4.0); LYMPHOCYTES # (AUTO) 1.6 K/uL (1.0-5.5); MEAN CORPUSCULAR HEMOGLOBIN 32 pg (27-31); MEAN CORPUSCULAR HGB CONC 33 % (32-36); MEAN CORPUSCULAR VOLUME 96 fL (79.0-98.0); MONOCYTES # (AUTO) 0.6 K/uL (0.0-1.0); MONOCYTES % (AUTO) 8.1 % (1.7-9.3); NEUTROPHILS # (AUTO) 5.4 K/uL (1.8-7.7); NEUTROPHILS % (AUTO) 68.4 % (40.0-70.0); PLATELET COUNT (AUTO) 269 K/uL (130-430); RED BLOOD CELL COUNT(AUTO) 4.38 MIL/uL (4.2-6.2); RED CELL DISTRIBUTION WIDTH 14.8 % (9.0-15.0); WHITE BLOOD COUNT (AUTO) 7.9 K/uL (4.8-10.8)
[2020-03-01 21:51] LABS: ANION GAP 7 (5-15); CALCIUM 8.6 mg/dL (8.4-11.0); CHLORIDE 104 mmol/L (98-107); CREATININE 0.52 mg/dL (0.55-1.30); GLUCOSE 112 mg/dL (70-99); INR 1.1 (0.8-1.2); POTASSIUM 3.6 mmol/L (3.5-5.1); SODIUM SERUM 142 mmol/L (136-145); UREA NITROGEN, BLOOD 19 mg/dL (8-21)
[2020-03-01 21:59] LABS: ALANINE AMINOTRANSFERASE 15 U/L (12-78); ALBUMIN 3.3 g/dL (3.4-4.8); ASPARTATE AMINOTRANSFERASE 12 U/L (10-37); BILIRUBIN,DIRECT 0.1 mg/dL (0.0-0.3); TOTAL BILIRUBIN 0.5 mg/dL (0.0-1.0)
[2020-03-01] MEDS ORDERED: FUROSEMIDE 20 MG/2 ML VIAL IVP ONE (23:15)
[2020-03-01] MEDS ORDERED: FUROSEMIDE 40 MG/4 ML VIAL IVP ONE (23:15)
[2020-03-02 00:13] VITALS: BP_SYST 132
[2020-03-02] MEDS ORDERED: FLU VACC QS2020-21(65UP)/PF 0.7 ML/SYRINGE I.M. PRN (00:15)
[2020-03-02] MEDS: ACETAMINOPHEN 325 MG TABLET PO PRN ×2 (00:50→08:30)
[2020-03-02 07:05] LABS: BASOPHILS % (AUTO) 0.5 % (0.0-2.0); EOSINOPHILS # (AUTO) 0.2 K/uL (0.0-0.4); HEMATOCRIT 40.1 % (36-48); HEMOGLOBIN 13.3 g/dL (12.0-16.0); LYMPHOCYTES # (AUTO) 1.2 K/uL (1.0-5.5); MEAN CORPUSCULAR HEMOGLOBIN 32 pg (27-31); MEAN CORPUSCULAR HGB CONC 33 % (32-36); MEAN CORPUSCULAR VOLUME 95 fL (79.0-98.0); MONOCYTES # (AUTO) 0.5 K/uL (0.0-1.0); MONOCYTES % (AUTO) 9.1 % (1.7-9.3); NEUTROPHILS # (AUTO) 3.7 K/uL (1.8-7.7); NEUTROPHILS % (AUTO) 65.4 % (40.0-70.0); PLATELET COUNT (AUTO) 245 K/uL (130-430); RED BLOOD CELL COUNT(AUTO) 4.21 MIL/uL (4.2-6.2); RED CELL DISTRIBUTION WIDTH 14.4 % (9.0-15.0); WHITE BLOOD COUNT (AUTO) 5.7 K/uL (4.8-10.8)
[2020-03-02 07:22] LABS: ALANINE AMINOTRANSFERASE 12 U/L (12-78); ANION GAP 6 (5-15); ASPARTATE AMINOTRANSFERASE 14 U/L (10-37); CALCIUM 8.6 mg/dL (8.4-11.0); CHLORIDE 104 mmol/L (98-107); CREATININE 0.54 mg/dL (0.55-1.30); GLUCOSE 118 mg/dL (70-99); POTASSIUM 3.8 mmol/L (3.5-5.1); SODIUM SERUM 143 mmol/L (136-145); TOTAL BILIRUBIN 0.6 mg/dL (0.0-1.0); UREA NITROGEN, BLOOD 17 mg/dL (8-21)
[2020-03-02 08:00] VITALS: BP_SYST 150
[2020-03-02] MEDS ORDERED: ENOXAPARIN SODIUM 40 MG/0.4 ML SYRINGE SUBCUT SCH (09:00)
[2020-03-02] MEDS ORDERED: busPIRone HCL 5 MG TABLET PO SCH (09:00)
[2020-03-02] MEDS ORDERED: LOSARTAN POTASSIUM 50 MG TABLET (COZAAR) PO SCH (09:00)
[2020-03-02] MEDS ORDERED: METOPROLOL SUCCINATE 50 MG TAB.SR.24H (TOPROL XL) PO SCH (09:00)
[2020-03-02] MEDS ORDERED: ALBUTEROL SULFATE 0.083% 2.5 MG/3 ML VIAL.NEB INH PRN (10:30)
[2020-03-02] MEDS ORDERED: IPRATROPIUM BROM 0.5 MG/2.5 ML VIAL.NEB (ATROVENT) INH PRN (10:30)
[2020-03-02] MEDS ORDERED: NALOXONE HCL 0.4 MG/ML AMP (NARCAN) IVP PRN (10:45)
[2020-03-02] MEDS ORDERED: HYDROcodone/ACETAMIN 5-325 MG TAB (NORCO/ VICODIN) PO PRN (10:45)
[2020-03-02] MEDS: ALBUTEROL SULFATE 0.083% 2.5 MG/3 ML VIAL.NEB INH SCH ×2 (11:00→15:00)
[2020-03-02] MEDS: IPRATROPIUM BROM 0.5 MG/2.5 ML VIAL.NEB (ATROVENT) INH SCH ×2 (11:00→15:00)
[2020-03-02 12:00] VITALS: BP_SYST 146
[2020-03-02 12:05] VITALS: BP_SYST 150
[2020-03-02] MEDS ORDERED: ALBMDI INH (14:51)
[2020-03-02 16:00] VITALS: BP_SYST 111
[2020-03-02] MEDS ORDERED: LORazepam 1 MG TABLET PO ONE (17:15)
[2020-03-02 18:26] VITALS: BP_SYST 111
== END 2020-03-02 20:12 | disposition home or self-care (01) ==
LOC: SED 17:16 → UNDOADMIN 23:10 → STU 23:10
PROVIDERS: ADMIT Internal Medicine Hospice and Palliative Medicine; ATTEND Internal Medicine Hospice and Palliative Medicine
DX: I11.0 Hypertensive heart disease with heart failure (principal); I50.30 Unspecified diastolic (congestive) heart failure; Z20.828 Contact with and (suspected) exposure to other viral communicable diseases; R60.0 Localized edema; M79.605 Pain in left leg; M79.604 Pain in right leg; M81.0 Age-related osteoporosis without current pathological fracture; I20.9 Angina pectoris, unspecified; I48.20 Chronic atrial fibrillation, unspecified; F41.9 Anxiety disorder, unspecified; M19.90 Unspecified osteoarthritis, unspecified site; Z87.891 Personal history of nicotine dependence; Z79.899 Other long term (current) drug therapy; Z86.73 Personal history of transient ischemic attack (TIA), and cerebral infarction without residual deficits; Z87.19 Personal history of other diseases of the digestive system
CPT/HCPCS: 36415 ×2; 71045; 80048; 80053; 80076; 83880; 84484 ×2; 85025 ×2; 85379; 85610; 87426; 93005; 93306; 93923; 93971; 96372; 96374; 97162; 97530; 99285; G0378; J1650; J1940

== ENCOUNTER 2021-01-10 10:51 | Emergency (ER) | payer OTHER, BC ==
[~2021-01-10] VITALS: Ht 149.9 cm; Wt 59.0 kg
[~2021-01-10 10:51] MED LIST changes: -ACET-73 PO; +ALBMDI INH; -ALPR0.25 PO; -AMLO2.5T2 PO; -CYCL-10 PO; -FLAX100031 PO; +FURO-150 PO; -LATA2.5D2 OP; -LISI40TA4 PO; -PARO-41 PO; -TEMA15CA5 PO; -ZOLP10TA2 PO
[2021-01-10 10:53] VITALS: BP_SYST 146
--- NOTE | 2021-01-10 10:53 | NUR ---
Patient to ER bed 8 to gown for evaluation. Side rails up.
--- NOTE | 2021-01-10 10:54 | NUR ---
Patient came in via BLS for evaluation after mechanical slip and fall. Abrasion with mild swelling is noted to the back of her head, no active bleeding. Patient denies knockout, dizziness, nausea.
--- NOTE | 2021-01-10 10:55 | NUR ---
ER Dr. Krueger at bedside examining patient.
[2021-01-10] MEDS: DIPH-TET-PERTUS Vaccine 0.5 ML VIAL (ADACEL) I.M. ONE (11:36)
[2021-01-10 12:55] VITALS: BP_SYST 146
--- NOTE | 2021-01-10 12:55 | NUR ---
Patient given written and verbal discharge instructions and verbalizes understanding. ER MD discussed with patient the results and treatment provided. Patient in stable condition. ID arm band removed. Patient educated on pain management and to follow up with PMD. Pain Scale 0/10. Opportunity for questions provided and answered. Medication side effect fact sheet provided.
== END 2021-01-10 12:55 | disposition home or self-care (01) ==
LOC: SED 10:51
DX: S09.90XA Unspecified injury of head, initial encounter (principal); I10 Essential (primary) hypertension; I48.91 Unspecified atrial fibrillation; Z88.5 Allergy status to narcotic agent; Z88.6 Allergy status to analgesic agent; Z79.899 Other long term (current) drug therapy; W01.198A Fall on same level from slipping, tripping and stumbling with subsequent striking against other object, initial encounter; Y93.89 Activity, other specified; Y92.89 Other specified places as the place of occurrence of the external cause; Y99.8 Other external cause status
CPT/HCPCS: 70450-TC; 76376; 90715; 99284

== ENCOUNTER 2021-01-13 15:45 | Inpatient (IN) | payer OTHER, BC, SELFPAY ==
[~2021-01-13] VITALS: Ht 157.5 cm; Wt 66.2 kg
[2021-01-13 15:45] VITALS: BP_SYST 151
--- NOTE | 2021-01-13 15:45 | NUR ---
BROUGHT IN BY [facility], PLACED IN BED #4 AND TRIAGED. REPORT GIVEN TO YASMINE
--- NOTE | 2021-01-13 15:50 | NUR ---
Pt bib ambulance with complaint of SOB Xtoday. Pt AAOX4 speaking full sentences. Pt saturating 92% NC 2L HR90 RR 18 BP 133/70 Temp 98.9. Lung sounds CTA bilaterally breathing even and unlabored. Pt resting in gurney attached to monitor.
--- NOTE | 2021-01-13 15:50 | NUR ---
GCS 15 equal range scientist strengt bilaterally PERRLA AAOX4. NIH 0
--- NOTE | 2021-01-13 15:55 | NUR ---
Pt last known well greater than 48hrs. Code stroke canceled by Dr. Peng
--- NOTE | 2021-01-13 16:14 | NUR ---
# 20 gauge angiocath placed to LAC. Use of asceptic technique. Opsite placed over site. Blood return noted. Blood for lab drawn from site. Flushed with 10 cc of normal saline. No evidence of infiltration noted. Patient tolerated well.
--- NOTE | 2021-01-13 16:14 | NUR ---
Blood collected and sent to lab.
--- NOTE | 2021-01-13 16:25 | NUR ---
ER at bedside examining patient.
[2021-01-13 17:21] LABS: BASOPHILS % (AUTO) 0.5 % (0.0-2.0); EOSINOPHILS # (AUTO) 0.3 K/uL (0.0-0.4); EOSINOPHILS % (AUTO) 3.7 % (0.0-4.0); HEMATOCRIT 40.2 % (36-48); HEMOGLOBIN 13.4 g/dL (12.0-16.0); LYMPHOCYTES # (AUTO) 1.2 K/uL (1.0-5.5); LYMPHOCYTES % (AUTO) 15.4 % (20.5-51.5); MEAN CORPUSCULAR HEMOGLOBIN 33 pg (27-31); MEAN CORPUSCULAR HGB CONC 33 % (32-36); MEAN CORPUSCULAR VOLUME 98 fL (79.0-98.0); MONOCYTES # (AUTO) 0.7 K/uL (0.0-1.0); MONOCYTES % (AUTO) 9.4 % (1.7-9.3); NEUTROPHILS # (AUTO) 5.6 K/uL (1.8-7.7); PLATELET COUNT (AUTO) 222 K/uL (130-430); RED BLOOD CELL COUNT(AUTO) 4.11 MIL/uL (4.2-6.2); RED CELL DISTRIBUTION WIDTH 15.2 % (9.0-15.0); WHITE BLOOD COUNT (AUTO) 7.9 K/uL (4.8-10.8)
[2021-01-13 17:25] LABS: INR 1.1 (0.8-1.2); PROTHROMBIN TIME 11.1 SECS (9.5-12.5)
--- NOTE | 2021-01-13 17:29 | NUR ---
Patient transported to radiology via gurney, accompanied by ronnie.
[2021-01-13 17:35] LABS: ANION GAP 6 (5-15); CHLORIDE 103 mmol/L (98-107); CREATININE 0.62 mg/dL (0.55-1.30); GLUCOSE 126 mg/dL (70-99); POTASSIUM 4.1 mmol/L (3.5-5.1); SODIUM SERUM 140 mmol/L (136-145); UREA NITROGEN, BLOOD 18 mg/dL (8-21)
[2021-01-13 17:40] LABS: ALANINE AMINOTRANSFERASE 15 U/L (12-78); ASPARTATE AMINOTRANSFERASE 13 U/L (10-37); TOTAL BILIRUBIN 0.8 mg/dL (0.0-1.0)
--- NOTE | 2021-01-13 18:00 | NUR ---
Pt back from CT reattached to monitor.
--- NOTE | 2021-01-13 18:07 | NUR ---
Lab at bedside.
--- NOTE | 2021-01-13 18:25 | NUR ---
Covid swab collected and sent to lab.
[2021-01-13] MEDS ORDERED: MIRT15TA7 PO (18:32)
--- NOTE | 2021-01-13 18:32 | NUR ---
Medication reconciliation completed with information provided by Chi LEE. Any prior medication reconciliation on file was reviewed and corrected.
[2021-01-13 18:40] LABS: BILIRUBIN,URINE NEGATIVE (NEGATIVE); BLOOD, URINE NEGATIVE (NEGATIVE); COLOR,URINE YELLOW (YELLOW); GLUCOSE,URINE NEGATIVE (NEGATIVE); KETONES,URINE TRACE (NEGATIVE); LEUKOCYTE ESTERASE ,URINE NEGATIVE (NEGATIVE); NITRITE, URINE POSITIVE (NEGATIVE); PROTEIN URINE NEGATIVE (NEGATIVE)
[2021-01-13 19:07] LABS: CLARITY/URINE SLIGHTLY HAZY (CLEAR)
--- NOTE | 2021-01-13 19:31 | NUR ---
Report given to
[2021-01-13 19:36] LABS: BACTERIA,URINE MANY /HPF (None Seen); MUCUS,URINE 3+ /LPF (None Seen); RBC,URINE NONE SEEN /HPF (0-3); WBC,URINE 0-3 /HPF (0-3)
--- NOTE | 2021-01-13 20:15 | NUR ---
Spoke with family ( daughter ) by phone, and updated on possible adm
--- NOTE | 2021-01-13 20:39 | NUR ---
Isabel/Daughter's phone number is [phone]
[2021-01-13] MEDS ORDERED: ALBUTEROL MDI INHALATION 8 GM INH INH SCH (21:00)
[2021-01-13] MEDS ORDERED: ALBUTEROL SULFATE 0.083% 2.5 MG/3 ML VIAL.NEB INH PRN (21:00)
[2021-01-13] MEDS: MIRTAZAPINE 15 MG TABLET PO SCH (21:02)
[2021-01-13 21:05] VITALS: BP_SYST 151
[2021-01-13] MEDS ORDERED: cefTRIAXone 2 GM VIAL ONE (21:10)
--- NOTE | 2021-01-13 21:42 | NUR ---
IV and PO meds well tolerated, Pt states " feeling a bit better now "
--- NOTE | 2021-01-13 22:04 | NUR ---
Pt resting in comfort on gurney rails up
--- NOTE | 2021-01-13 23:12 | NUR ---
Pt family received update once again, and Pt states " feeling a little better "
--- NOTE | 2021-01-14 00:19 | NUR ---
VSS no s/s of acute distress, Resting on gurney rails up
--- NOTE | 2021-01-14 01:30 | NUR ---
Pt remains stable on 4 L NC , O2 sat currently at 96%
--- NOTE | 2021-01-14 01:55 | NUR ---
ADMISSION NOTE Received patient from ER via chrissy, received report from JENNA LEE. Patient admitted with diagnosis of UTI SPEECH DIFFICULTY . Patient oriented to hospital routine, call light, toileting and safety-patient verbalized understanding.
[2021-01-14 01:58] VITALS: BP_SYST 147
--- NOTE | 2021-01-14 02:00 | NUR ---
PATIENT'S SPEECH ABNORMALITY THAT IS BETWEEN GARBLED AND SLURRED NOTED. PATIENT ABLE TO DRINK WATER WITH THE RAPID SWALLOW WITH NO DIFFICULTY. PATIENT STATES EVEN AFTER THE SPEECH ABNORMALITY, PATIENT HAD NO DIFFICULTY OF EATING OR DRINKING. WILL CLOSELY MONITOR.
--- NOTE | 2021-01-14 02:05 | NUR ---
Patient will be admitted to care of Dr. Alcala. Admitted to tele unit. Will go to room 114B. Belongings list completed. Complete and up to date summary report printed. SBAR report to be given at bedside with opportunity for questions.
--- NOTE | 2021-01-14 02:05 | NUR ---
Transfer to Tele via ACLS protocol. Licensed nurse present. IV present no signs or symptoms of infiltration.
--- NOTE | 2021-01-14 06:26 | NUR ---
CLOSING NOTES PATIENT RESTING, HOB ELEVATED, NO RESPIRATORY DISTRESS NOTED. STROKE EDUCATION PACKET PROVIDED, PATIENT VERBALIZES BACK UNDERSTANDING. CALL LIGHT WITHIN REACH, PATIENT USES CALL LIGHT, BED ALARM ON, BED AT LOWEST POSITION, BED LOCKED. FALL, RESPIRATORY, ASPIRATION, AND SAFETY PRECAUTIONS IN PLACE. WILL CONTINUE TO MONITOR.
[2021-01-14 06:40] LABS: BASOPHILS % (AUTO) 0.2 % (0.0-2.0); EOSINOPHILS # (AUTO) 0.2 K/uL (0.0-0.4); EOSINOPHILS % (AUTO) 2.3 % (0.0-4.0); HEMATOCRIT 41.1 % (36-48); HEMOGLOBIN 13.5 g/dL (12.0-16.0); LYMPHOCYTES # (AUTO) 0.9 K/uL (1.0-5.5); LYMPHOCYTES % (AUTO) 13.4 % (20.5-51.5); MEAN CORPUSCULAR HEMOGLOBIN 32 pg (27-31); MEAN CORPUSCULAR HGB CONC 33 % (32-36); MEAN CORPUSCULAR VOLUME 99 fL (79.0-98.0); MONOCYTES # (AUTO) 0.5 K/uL (0.0-1.0); MONOCYTES % (AUTO) 7.4 % (1.7-9.3); NEUTROPHILS % (AUTO) 76.7 % (40.0-70.0); PLATELET COUNT (AUTO) 183 K/uL (130-430); RED BLOOD CELL COUNT(AUTO) 4.15 MIL/uL (4.2-6.2); RED CELL DISTRIBUTION WIDTH 14.8 % (9.0-15.0); WHITE BLOOD COUNT (AUTO) 6.5 K/uL (4.8-10.8)
[2021-01-14] MEDS ORDERED: ALBUTEROL SULFATE 0.083% 2.5 MG/3 ML VIAL.NEB INH ONE (07:30)
[2021-01-14 07:55] VITALS: BP_SYST 132
--- NOTE | 2021-01-14 08:00 | NUR ---
OPENING NOTES PATIENT AAO X 4. LUNGS BILATERALLY DIMINISHED AT THE BASES.ABDOMEN SOFT AND NON DISTENDED. HAS IV ACCESS ON THE LEFT AC #20. SALINE LOCK. VOIDED IN THE BEDPAN. CALL LIGHTS WITHIN REACH. BED LOW POSITION, ALARMED AND LOCKED. WILL CONTINUE TO MONITOR PATIENTS STATUS.
[2021-01-14 08:31] LABS: ALANINE AMINOTRANSFERASE 12 U/L (12-78); ALBUMIN 2.6 g/dL (3.4-4.8); ANION GAP 5 (5-15); ASPARTATE AMINOTRANSFERASE 14 U/L (10-37); CALCIUM 8.3 mg/dL (8.4-11.0); CHLORIDE 105 mmol/L (98-107); CHOLESTEROL 87 mg/dL (<200); CREATININE 0.43 mg/dL (0.55-1.30); GLUCOSE 118 mg/dL (70-99); HDL CHOLESTEROL 47 mg/dL (>55); LDL CHOLESTEROL 47 mg/dL (<100); POTASSIUM 4.3 mmol/L (3.5-5.1); SODIUM SERUM 140 mmol/L (136-145); TOTAL BILIRUBIN 0.6 mg/dL (0.0-1.0); TRIGLYCERIDES 70 mg/dL (30-150); UREA NITROGEN, BLOOD 13 mg/dL (8-21)
--- NOTE | 2021-01-14 09:36 | NUR ---
SEEN BY DR ROBB AND POSSIBLE D/C HOME TODAY.
--- NOTE | 2021-01-14 12:10 | NUR ---
S.T. SPEECH/LANGUAGE EVAL SPEECH/LANGUAGE EVAL COMPLETED. PT PRESENTS W/ ML DYSARTHRIA. PT TO BE DISCHARGED TODAY. PT STATES SHE IS TOO TIRED TODAY TO PARTICIPATE IN [place]. PT VERBALIZED UNDERSTANDING RE: FOLLOW UP W/ S.T. AFTER DISCHARGE. SPOKE W/ DR. ROBB AND NURSE PHILIP RE: THE NEED FOR FOLLOW UP OUTPATIENT S.T. AFTER DISCHARGE.
[2021-01-14 12:39] VITALS: BP_SYST 120
--- NOTE | 2021-01-14 12:40 | NUR ---
SHOE CUTTER BY STEVE BRASSIERE CUP MOLD CUTTER FOR CT SCAN OF CHEST VIA WHEELCHAIR
--- NOTE | 2021-01-14 12:47 | NUR ---
CT SCAN OF CHEST FOR PULMONARY EMBOLISM AND ABG ON ROOM AIR.
[2021-01-14] MEDS ORDERED: IOHEXOL 350 mgI/mL, 150 ML INFUS..BTL IV ONE (14:18)
[2021-01-14] MEDS ORDERED: ALBUTEROL SULFATE 0.083% 2.5 MG/3 ML VIAL.NEB INH PRN (15:00)
[2021-01-14] MEDS: ACETAMINOPHEN 500 MG TABLET PO PRN ×2 (15:22→21:11)
--- NOTE | 2021-01-14 15:25 | NUR ---
CONSULTATION PAGED/CALLED Reason for Consultation: [] r/o pulmonary embolism Person Who was Notified: [] GEOVANNY Consulting Physician: [] DR CONTRERAS Caramel Coloring Operator Specialty: [] PULMO Ordering Physician: [] DR ROBB
--- NOTE | 2021-01-14 16:15 | NUR ---
DR CONTRERAS CAME AND SAW THE RESULT OF CT SCAN OF CHEST. AND EVALUATE THE PATIENT.
--- NOTE | 2021-01-14 16:31 | NUR ---
PAGED PAGED JAY JAY TREVIZO AT [phone] SPOKE WITH WAGNER.
--- NOTE | 2021-01-14 16:37 | NUR ---
DR ROBB CALL BACK. CONSULT DR CONTRERAS. DR CONTRERAS CAME SAW THE RESUL.
[2021-01-14 16:47] VITALS: BP_SYST 122
--- NOTE | 2021-01-14 17:42 | NUR ---
CALLED DR ROBB FOR LAB RESULT. AWAITING TO CALL BACK
--- NOTE | 2021-01-14 19:20 | NUR ---
Opening note Received patient awake, sitting in hi-fowlers. No distress, nonlabored breathing. Patient finished 100% of her dinner. She is watching t.v. IV to LAC is SL. Bed is locked in lowest position, side rails up, call light w/in reach and bed alarm on. Updated board.
[2021-01-14 20:35] VITALS: BP_SYST 119
[2021-01-14] MEDS: MIRTAZAPINE 15 MG TABLET PO SCH (21:08)
--- NOTE | 2021-01-14 21:11 | NUR ---
Meds Scheduled med given. Patient reporting back pain and Tylenol given as ordered, tm
[2021-01-15 00:30] VITALS: BP_SYST 129
--- NOTE | 2021-01-15 00:30 | NUR ---
V/S VSS, denies pain, she wants t.v. off and wants to sleep
[2021-01-15 08:00] VITALS: BP_SYST 119
--- NOTE | 2021-01-15 08:00 | NUR ---
ASSUMPTION OF CARE: RECEIVED PT A/A/OX4, CONDITION IS STABLE, VS WNL, AFEBRILE, NO S/S OF DISTRESS, BREATH SOUNDS ARE CLEAR, BREATHING UNLABORED, O2 SAT=99% ON 2L VIA NC, PT C/O HEADACHE 4-5/10 VIA NUMERIC SCALE, WILL ADMINISTER MEDS, PER ORDERED BY Anuradha. PT ORIENTED TO UNIT, CALL LIGHT PLACED WITHIN REACH, IV SITE INTACT, PATENT, NO REDNESS OR SWELLING, ROOM CLOSE TO NURSES STATION, WILL CONT' TO MONITOR AND ASSESS.
[2021-01-15] MEDS ORDERED: KETOROLAC TROMETHAMINE 30 MG VIAL IVP PRN (09:45)
[2021-01-15] MEDS ORDERED: LIDOCAINE PATCH 5% 1 EA TP ONE (10:00)
--- NOTE | 2021-01-15 10:00 | NUR ---
PAIN: PT C/O PAIN 6/10 VIA NUMERIC SCALE, TORADOL 30 MG IVP GIVEN AT THIS TIME, POSITIONED PT FOR COMFORT, CALL LIGHT WITHIN REACH, WILL CONT' TO MONITOR AND ASSESS.
[2021-01-15 12:00] VITALS: BP_SYST 112
--- NOTE | 2021-01-15 15:29 | NUR ---
PHYSICAL THERAPY CO-SIGN The Physical Therapy Progress Notes documented by Technical Clerk have been reviewed. Reviewed/Co-Signed by: Patricia Thurston PT Documentation Done by:MARI MOONEY TRANSMISSION SYSTEM OPERATOR PROGRESS ZARA Addendum: 01/15/21 at 1529 by Patricia Thurston PT Amended: Links added.
[2021-01-15] MEDS: IBUPROFEN 600 MG TABLET PO SCH ×2 (16:52→20:58)
[2021-01-15] MEDS: BACLOFEN 10 MG TABLET PO SCH ×2 (16:53→20:58)
[2021-01-15 20:00] VITALS: BP_SYST 114
[2021-01-15] MEDS: MIRTAZAPINE 15 MG TABLET PO SCH (20:58)
[2021-01-16] VITALS: BP_SYST 116
--- NOTE | 2021-01-16 01:13 | NUR ---
Patient in bed.No acute distress noted. Will continue to monitor.
[2021-01-16 07:03] LABS: BASOPHILS % (AUTO) 0.5 % (0.0-2.0); EOSINOPHILS # (AUTO) 0.3 K/uL (0.0-0.4); EOSINOPHILS % (AUTO) 5.4 % (0.0-4.0); HEMATOCRIT 37.8 % (36-48); HEMOGLOBIN 12.5 g/dL (12.0-16.0); LYMPHOCYTES # (AUTO) 0.9 K/uL (1.0-5.5); LYMPHOCYTES % (AUTO) 18.3 % (20.5-51.5); MEAN CORPUSCULAR HEMOGLOBIN 33 pg (27-31); MEAN CORPUSCULAR HGB CONC 33 % (32-36); MEAN CORPUSCULAR VOLUME 99 fL (79.0-98.0); MONOCYTES # (AUTO) 0.6 K/uL (0.0-1.0); MONOCYTES % (AUTO) 11.2 % (1.7-9.3); NEUTROPHILS # (AUTO) 3.3 K/uL (1.8-7.7); NEUTROPHILS % (AUTO) 64.6 % (40.0-70.0); PLATELET COUNT (AUTO) 168 K/uL (130-430); RED BLOOD CELL COUNT(AUTO) 3.81 MIL/uL (4.2-6.2); RED CELL DISTRIBUTION WIDTH 15.1 % (9.0-15.0); WHITE BLOOD COUNT (AUTO) 5.1 K/uL (4.8-10.8)
[2021-01-16 07:25] LABS: ANION GAP 4 (5-15); CALCIUM 8.8 mg/dL (8.4-11.0); CHLORIDE 108 mmol/L (98-107); CREATININE 0.59 mg/dL (0.55-1.30); GLUCOSE 115 mg/dL (70-99); POTASSIUM 4.2 mmol/L (3.5-5.1); SODIUM SERUM 145 mmol/L (136-145); UREA NITROGEN, BLOOD 13 mg/dL (8-21)
--- NOTE | 2021-01-16 07:35 | NUR ---
OPENING NOTES: RECEIVED REPORT FROM RN REHABILITATION NURSE. PATIENT IS AWAKE, ALERT LAYING DOWN IN BED. TOLERATED OXYGEN PN ROOM AIR WITH NO DISTRESS NOTED. IV LINE PATENT AND INTACT WITH NO INFILTRATION NOTED. PATIENT STABLE AT THIS TIME. SAFETY, FALL, AND ASPIRATION PRECAUTIONS ARE IN PLACE. BED LOCKED IN LOWEST POSITION AND CALL LIGHT IN REACH. WILL CONTINUE TO MONITOR PATIENT FOR ANY CHANGES. Addendum: 01/16/21 at 0939 by Andre Arnold RN PATIENT IS ON A 2L NASAL CANNULA WITH NO DISTRESS NOTED.
[2021-01-16 08:00] VITALS: BP_SYST 140
[2021-01-16] MEDS: LIDOCAINE PATCH 5% 1 EA TP SCH (09:36)
[2021-01-16] MEDS: IBUPROFEN 600 MG TABLET PO SCH ×3 (09:37→21:09)
[2021-01-16] MEDS: BACLOFEN 10 MG TABLET PO SCH ×3 (09:37→21:10)
--- NOTE | 2021-01-16 10:51 | NUR ---
Nutrition Update Pritesh Scale 18 noted. Pt admitted for UTI, speech difficulty. Diet: cardiac BMI: 31.7 kg/m2 RD to follow per nutrition care standards.
[2021-01-16 12:00] VITALS: BP_SYST 142
--- NOTE | 2021-01-16 15:51 | NUR ---
Dietitian Recommendations * Recommend cardiac, high fiber diet w/ Ensure Enlive BID (ONS provides 700 kcal/day, 40 gm protein/day) MERLE RASMUSSEN Please refer to Nutrition Assessment for details. Addendum: 01/16/21 at [address] Amended: Links added.
[2021-01-16 16:00] VITALS: BP_SYST 140
[2021-01-16] MEDS: cefTRIAXone 1 GM in D5W 50 ML IV SCH (16:57)
--- NOTE | 2021-01-16 18:30 | NUR ---
CLOSING NOTES: PATIENT IS AWAKE, ALERT LAYING DOWN IN BED. TOLERATED OXYGEN ON 2L NASAL CANNULA WITH NO DISTRESS NOTED. IV LINE PATENT AND INTACT WITH NO INFILTRATION NOTED. PATIENT STABLE AT THIS TIME. SAFETY, FALL, AND ASPIRATION PRECAUTIONS REMAINED IN PLACE. BED LOCKED IN LOWEST POSITION AND CALL LIGHT IN REACH. WILL ENDORSE PATIENT CARE TO ONCOMING LAW FIRM PARTNER NURSE.
--- NOTE | 2021-01-16 19:35 | NUR ---
initial notes: pt is awake, alert,oriented x4, complain of chronic back pain, no sob, stable vital sign o2 at 3l via nc. iv lock to left hand. incontinent. clean pt. no skin breakdown. vetiligo skin all over, reposition. discuss poc. verbalized understanding. call light in reach.. side rails up. bed alarm on. will follow-up.
[2021-01-16 20:56] VITALS: BP_SYST 132
[2021-01-16] MEDS: MIRTAZAPINE 15 MG TABLET PO SCH (21:09)
[2021-01-17] VITALS: BP_SYST 119
--- NOTE | 2021-01-17 | NUR ---
sleeping, comfortable. no pain, stable vital sign,
--- NOTE | 2021-01-17 03:02 | NUR ---
sleeping, comfortable, no distress, no pain, stable.
--- NOTE | 2021-01-17 04:33 | NUR ---
incontinence care: pt is soiled with urine, clean pt and change chux, pt toleratre well.
--- NOTE | 2021-01-17 06:35 | NUR ---
closing: pt is sleeping, comfortable. no sob, not distress, stable, iv lock intact, needs attended the whole shift, safety precaution in place. side rails up. low bed position and alarm. will sbar reporting to am rn.
[2021-01-17 06:55] LABS: BASOPHILS % (AUTO) 0.5 % (0.0-2.0); EOSINOPHILS # (AUTO) 0.2 K/uL (0.0-0.4); EOSINOPHILS % (AUTO) 5.2 % (0.0-4.0); HEMATOCRIT 37.7 % (36-48); HEMOGLOBIN 12.4 g/dL (12.0-16.0); LYMPHOCYTES # (AUTO) 0.6 K/uL (1.0-5.5); LYMPHOCYTES % (AUTO) 13.4 % (20.5-51.5); MEAN CORPUSCULAR HEMOGLOBIN 32 pg (27-31); MEAN CORPUSCULAR HGB CONC 33 % (32-36); MEAN CORPUSCULAR VOLUME 99 fL (79.0-98.0); MONOCYTES # (AUTO) 0.3 K/uL (0.0-1.0); MONOCYTES % (AUTO) 7.7 % (1.7-9.3); NEUTROPHILS # (AUTO) 3.2 K/uL (1.8-7.7); NEUTROPHILS % (AUTO) 73.2 % (40.0-70.0); PLATELET COUNT (AUTO) 169 K/uL (130-430); RED BLOOD CELL COUNT(AUTO) 3.83 MIL/uL (4.2-6.2); RED CELL DISTRIBUTION WIDTH 14.5 % (9.0-15.0); WHITE BLOOD COUNT (AUTO) 4.4 K/uL (4.8-10.8)
[2021-01-17] MEDS: ALBUTEROL SULFATE 0.083% 2.5 MG/3 ML VIAL.NEB INH SCH ×2 (07:00→20:09)
--- NOTE | 2021-01-17 07:27 | NUR ---
OPENING NOTES: RECEIVED REPORT FROM COMMISSARY STEWARD NURSE. PATIENT IS AWAKE, ALERT LAYING DOWN IN BED. TOLERATED OXYGEN ON 2L NASAL CANNULA WITH NO DISTRESS NOTED. IV LINE PATENT AND INTACT WITH NO INFILTRATION NOTED. PATIENT STABLE AT THIS TIME. SAFETY, FALL, AND ASPIRATION PRECAUTIONS ARE IN PLACE. BED LOCKED IN LOWEST POSITION AND CALL LIGHT IN REACH. WILL CONTINUE TO MONITOR PATIENT FOR ANY CHANGES.
[2021-01-17 08:00] VITALS: BP_SYST 153; BP_SYST 158
[2021-01-17 08:07] LABS: ALANINE AMINOTRANSFERASE 16 U/L (12-78); ALBUMIN 2.3 g/dL (3.4-4.8); ANION GAP 4 (5-15); ASPARTATE AMINOTRANSFERASE 13 U/L (10-37); C-REACTIVE PROTEIN QUANT 2.4 mg/dL (0-0.5); CALCIUM 8.3 mg/dL (8.4-11.0); CHLORIDE 106 mmol/L (98-107); CREATININE 0.39 mg/dL (0.55-1.30); GLUCOSE 106 mg/dL (70-99); POTASSIUM 4.1 mmol/L (3.5-5.1); SODIUM SERUM 142 mmol/L (136-145); TOTAL BILIRUBIN 0.4 mg/dL (0.0-1.0); UREA NITROGEN, BLOOD 9 mg/dL (8-21)
[2021-01-17] MEDS: LIDOCAINE PATCH 5% 1 EA TP SCH (09:12)
[2021-01-17] MEDS: BACLOFEN 10 MG TABLET PO SCH ×3 (09:12→21:51)
[2021-01-17] MEDS: IBUPROFEN 600 MG TABLET PO SCH ×4 (09:13→22:50)
[2021-01-17] MEDS ORDERED: LIDOCAINE 1%, 20 ML MDV 20 ML ONE (09:30)
[2021-01-17 10:00] LABS: ERYTHROCYTE SEDIMENTATION RATE 29 MM/HR (0-20)
--- NOTE | 2021-01-17 10:00 | NUR ---
PATIENT REFUSED CT GUIDED LUNG BIOPSY. (DR. ROBBINS) AWARE.
--- NOTE | 2021-01-17 10:58 | NUR ---
JAZZY ROBBINS WAS CALLED RE: TO NOTIFY THAT PT'S FAMILY REFUSED LUNG BIOPSY. SPOKE Addendum: 01/17/21 at 1307 by Avis Tilley MT/ KATHIE GROSS
--- NOTE | 2021-01-17 11:44 | NUR ---
CONSULTATION PAGED REASON FOR CONSULTATION:SLURRED SPEECH WAS CONSULT CALLED?Y PERSON WHO WAS NOTIFIED:IZABELLA MARTINEZ TEXT MESSAGED CONSULTING PHYSICIAN:ESPERANZA MARTINEZ GRADES 9 THRU 12 VISITING TEACHER SPECIALTY:NEURO GRADES 9 THRU 12 VISITING TEACHER PHONE NUMBER:[phone] REQUESTING PHYSICIAN:JAY JAY TREVIZO
[2021-01-17] MEDS: cefTRIAXone 1 GM in D5W 50 ML IV SCH (11:51)
[2021-01-17 12:00] VITALS: BP_SYST 148
[2021-01-17 16:00] VITALS: BP_SYST 146
--- NOTE | 2021-01-17 17:00 | NUR ---
PATIENT WAS TRANSFERRED FROM ROOM 114B TO 116B.
--- NOTE | 2021-01-17 18:20 | NUR ---
CLOSING NOTES: PATIENT IS AWAKE, ALERT LAYING DOWN IN BED. TOLERATED OXYGEN ON 2L NASAL CANNULA WITH NO DISTRESS NOTED. IV LINE PATENT AND INTACT WITH NO INFILTRATION NOTED. PATIENT STABLE AT THIS TIME. SAFETY, FALL, AND ASPIRATION PRECAUTIONS REMAINED IN PLACE. BED LOCKED IN LOWEST POSITION AND CALL LIGHT IN REACH. WILL ENDORSE PATIENT CARE TO ONCOMING FOURDRINIER WIRE WEAVER NURSE.
--- NOTE | 2021-01-17 19:30 | NUR ---
OPENING NOTE PATIENT IS AWAKE ALERT ORIENTED X3 BREATHING OXYGEN 2 LPM BY N/C NO SIGNS OF RESPIRATORY DISTRESS OR PAIN. FAMILY AT BEDSIDE. IV SITE PATENT AND INTACT IN LH. BED IS LOW AND CALL LIGHT WITHIN REACH.
[2021-01-17] MEDS: MIRTAZAPINE 15 MG TABLET PO SCH (21:51)
--- NOTE | 2021-01-18 | NUR ---
PATIENT IS RESTING IN BED NO SIGNS OF PAIN OR DISTRESS COOPERATIVE. BED IS LOW AND CALL LIGHT IN REACH.
[2021-01-18 01:29] VITALS: BP_SYST 143
[2021-01-18] MEDS: ACETAMINOPHEN 500 MG TABLET PO PRN (01:45)
--- NOTE | 2021-01-18 04:00 | NUR ---
PATIENT IS ASLEEP NO SIGNS OF PAIN OR DISTRESS BED IS LOW AND CALL LIGHT IS IN REACH.
--- NOTE | 2021-01-18 07:42 | NUR ---
CLOSING NOTE PATIENT ASLEEP IN NO DISTRESS OR PAIN. IV SITE PATENT AND INTACT. BED IS LOW AND CALL LIGHT IN REACH.
--- NOTE | 2021-01-18 07:55 | NUR ---
OPENING NOTE Patient is resting in bed A&O x3, forgetful;, easily reoriented, no complaint of pain or discomfort, no signs or symptoms of respiratory distress. Patients IV is dislodged, applied dressing, clean dry and intact. Will place another one. Educted patient on plan of care, patient verbalized understanding, will reenforce education due to cognitive status. Bed is in lowest position call light within reach, fall and aspiration precautions are in place, Will continue to monitor.
[2021-01-18 08:00] VITALS: BP_SYST 161
[2021-01-18] MEDS: ALBUTEROL SULFATE 0.083% 2.5 MG/3 ML VIAL.NEB INH SCH (08:08)
[2021-01-18] MEDS: LIDOCAINE PATCH 5% 1 EA TP SCH (08:44)
[2021-01-18] MEDS: BACLOFEN 10 MG TABLET PO SCH (08:44)
[2021-01-18] MEDS ORDERED: CLOPIDOGREL BISULFATE 75 MG TABLET PO SCH (09:00)
[2021-01-18] MEDS ORDERED: CLOP75TA32 PO (10:14)
[2021-01-18] MEDS ORDERED: AMOX-426 PO (10:14)
--- NOTE | 2021-01-18 10:15 | NUR ---
RN note Ween patient of O2, tolerating well. Saturation is 92%
[2021-01-18] MEDS: cefTRIAXone 1 GM in D5W 50 ML IV SCH (11:49)
[2021-01-18 12:17] VITALS: BP_SYST 133
[2021-01-18 15:19] VITALS: BP_SYST 133
--- NOTE | 2021-01-18 16:30 | NUR ---
D/C Patient Patient given medication reconciliation form and D/C instructions. Exit Care provided. Patient verbalized understanding. MD discussed with patient the results and treatment provided. Ambulatory with steady gait for discharge to home. Patient in stable condition, ID band removed. IV catheter removed, intact and dressing applied, no active bleeding. All belongings sent with patient.
== END 2021-01-18 16:30 | disposition home or self-care (01) | DRG 189 ==
LOC: SED 15:45 → STU 20:46 → OBSVTOIN 20:46 → STU 01-14 01:33 → OBSVTOIN 01-15 09:34 → INTOOBSV 01-15 09:34 → STU 01-15 13:20 → SMU 01-15 13:20 → STU 01-18 16:07
PROVIDERS: ADMIT Internal Medicine Hospice and Palliative Medicine; ATTEND Internal Medicine Hospice and Palliative Medicine
DX: J96.01 Acute respiratory failure with hypoxia (principal); N39.0 Urinary tract infection, site not specified; J44.1 Chronic obstructive pulmonary disease with (acute) exacerbation; E46 Unspecified protein-calorie malnutrition; M81.0 Age-related osteoporosis without current pathological fracture; I48.91 Unspecified atrial fibrillation; M19.90 Unspecified osteoarthritis, unspecified site; E88.09 Other disorders of plasma-protein metabolism, not elsewhere classified; K21.9 Gastro-esophageal reflux disease without esophagitis; R91.8 Other nonspecific abnormal finding of lung field; Z20.822 Contact with and (suspected) exposure to COVID-19; I10 Essential (primary) hypertension; Z88.6 Allergy status to analgesic agent; Z88.5 Allergy status to narcotic agent; Z88.8 Allergy status to other drugs, medicaments and biological substances; Z79.899 Other long term (current) drug therapy; Z86.73 Personal history of transient ischemic attack (TIA), and cerebral infarction without residual deficits; Z87.891 Personal history of nicotine dependence; Z79.01 Long term (current) use of anticoagulants; Z68.26 Body mass index [BMI] 26.0-26.9, adult
CPT/HCPCS: 36415; 36600; 70450-TC; 70551; 71045; 71275; 76376; 80048; 80053; 80061; 81000; 82803-TC; 84484; 85025; 85610-TC; 85651-TC; 85730-TC; 86140; 86886; 86900; 86901; 87086; 92523; 93005; 93306; 93880; 94640; 94760; 96365; 96366; 97110-GP; 97116-GP; 97530-GP; 99285; G0378; J0696; J1885; J2001; J7060; J7613; Q9967

== ENCOUNTER 2021-12-11 12:15 | Emergency (ER) | payer OTHER, BC ==
[~2021-12-11] VITALS: Ht 149.9 cm; Wt 71.2 kg
[~2021-12-11 12:15] MED LIST changes: +AMOX-426 PO; +CLOP75TA32 PO; +MIRT-91 PO
[2021-12-11 12:38] VITALS: BP_SYST 120
--- NOTE | 2021-12-11 13:00 | NUR ---
Pt BIB BLS from home, Pt CC posterior shoulder pain. AAOx4 skin intact, vss, pain level 10/10. [place] 6-7 hours of time. No signs of trauma. Pt ambulates with assistance and walker unsteady gait. PMHx HTN Osteoporosis Prolapsed bladder incontinent COPD
[2021-12-11] MEDS ORDERED: methocarbamoL 500 MG TABLET PO ONE (14:45)
[2021-12-11] MEDS ORDERED: LIDOCAINE PATCH 5% 1 EA TP ONE (14:45)
[2021-12-11] MEDS ORDERED: KETOROLAC TROMETHAMINE 30 MG VIAL IM ONE (14:45)
[2021-12-11] MEDS ORDERED: ACETAMINOPHEN 500 MG TABLET PO ONE (14:45)
--- NOTE | 2021-12-11 14:45 | NUR ---
Pt with criminal justice teacher bedside. Pt flavio well.
--- NOTE | 2021-12-11 15:00 | NUR ---
Pt resting in bed with eyes closed, no signs of acute distress. VSS.
[2021-12-11 15:01] LABS: BASOPHILS % (AUTO) 0.4 % (0.0-2.0); EOSINOPHILS # (AUTO) 0.2 K/uL (0.0-0.4); EOSINOPHILS % (AUTO) 3.3 % (0.0-4.0); HEMATOCRIT 37.8 % (36-48); HEMOGLOBIN 12.6 g/dL (12.0-16.0); LYMPHOCYTES # (AUTO) 0.9 K/uL (1.0-5.5); LYMPHOCYTES % (AUTO) 13.2 % (20.5-51.5); MEAN CORPUSCULAR HEMOGLOBIN 32 pg (27-31); MEAN CORPUSCULAR HGB CONC 33 % (32-36); MEAN CORPUSCULAR VOLUME 96 fL (79.0-98.0); MONOCYTES # (AUTO) 0.6 K/uL (0.0-1.0); NEUTROPHILS # (AUTO) 5.1 K/uL (1.8-7.7); NEUTROPHILS % (AUTO) 74.1 % (40.0-70.0); PLATELET COUNT (AUTO) 179 K/uL (130-430); RED BLOOD CELL COUNT(AUTO) 3.93 MIL/uL (4.2-6.2); RED CELL DISTRIBUTION WIDTH 14.7 % (9.0-15.0); WHITE BLOOD COUNT (AUTO) 6.9 K/uL (4.8-10.8)
[2021-12-11 15:14] LABS: ANION GAP 2 (5-15); CALCIUM 8.9 mg/dL (8.4-11.0); CHLORIDE 102 mmol/L (98-107); CREATININE 0.49 mg/dL (0.55-1.30); GLUCOSE 101 mg/dL (70-99); POTASSIUM 4.2 mmol/L (3.5-5.1); SODIUM SERUM 141 mmol/L (136-145); UREA NITROGEN, BLOOD 15 mg/dL (8-21)
[2021-12-11 15:22] LABS: ALANINE AMINOTRANSFERASE 8 U/L (12-78); ALBUMIN 2.7 g/dL (3.4-4.8); ASPARTATE AMINOTRANSFERASE 13 U/L (10-37); TOTAL BILIRUBIN 0.6 mg/dL (0.0-1.0)
--- NOTE | 2021-12-11 16:08 | NUR ---
Pt eating turkey sandwich comfortable without pain.
[2021-12-11] MEDS ORDERED: BACL10TA PO (16:12)
[2021-12-11] MEDS ORDERED: LIDOINT TP (16:12)
[2021-12-11] MEDS ORDERED: ACET325T53 PO (16:12)
--- NOTE | 2021-12-11 16:50 | NUR ---
Patient given written and verbal discharge instructions and verbalizes understanding. ER MD discussed with patient the results and treatment provided. Patient in stable condition. ID arm band removed. Opportunity for questions provided and answered. Medication side effect fact sheet provided.
[2021-12-11 16:51] VITALS: BP_SYST 124
== END 2021-12-11 16:50 | disposition home or self-care (01) ==
LOC: SED 12:15
DX: S29.012A Strain of muscle and tendon of back wall of thorax, initial encounter (principal); S39.012A Strain of muscle, fascia and tendon of lower back, initial encounter; J44.9 Chronic obstructive pulmonary disease, unspecified; I10 Essential (primary) hypertension; Z88.6 Allergy status to analgesic agent; Z88.8 Allergy status to other drugs, medicaments and biological substances; Z79.899 Other long term (current) drug therapy; X58.XXXA Exposure to other specified factors, initial encounter; Y93.89 Activity, other specified; Y92.89 Other specified places as the place of occurrence of the external cause; Y99.8 Other external cause status
CPT/HCPCS: 99285; 71045; 80053; 85025; 84484; 36415; 93005; 96372; J1885

== ENCOUNTER 2022-03-09 09:58 | Inpatient (IN) | payer OTHER, BC ==
[~2022-03-09] VITALS: Ht 149.9 cm; Wt 68.7 kg
[~2022-03-09 09:58] MED LIST changes: +ACET325T53 PO; +BACL10TA PO; +LIDOINT TP
[2022-03-09 10:01] VITALS: BP_SYST 167
--- NOTE | 2022-03-09 10:10 | NUR ---
Pt bib bls from home. CC back pain. 03/06. pt is afebrile, aaox4, cap refill ,3 sec. saturation at 89% room air. Pmhx HTN, arthritis and COPD chronic back pain Oxygen 2 liters. pt lives alone with small dogs, brother checks on her in the mornings.
--- NOTE | 2022-03-09 10:12 | NUR ---
Pt complains of severe constipation and hunger. Dr Dunham notified, breakfast served, awaiting dr crawford.
--- NOTE | 2022-03-09 10:15 | NUR ---
ER at bedside examining patient.
[2022-03-09] MEDS ORDERED: KETOROLAC TROMETHAMINE 15 MG VIAL IVP ONE (10:45)
[2022-03-09] MEDS ORDERED: LIDOCAINE PATCH 5% 1 EA TP ONE (10:45)
[2022-03-09] MEDS ORDERED: ACETAMINOPHEN 500 MG TABLET PO ONE (10:45)
[2022-03-09 10:55] LABS: BASOPHILS % (AUTO) 0.4 % (0.0-2.0); EOSINOPHILS # (AUTO) 0.1 K/uL (0.0-0.4); EOSINOPHILS % (AUTO) 1.9 % (0.0-4.0); HEMATOCRIT 36.4 % (36-48); HEMOGLOBIN 12.3 g/dL (12.0-16.0); LYMPHOCYTES # (AUTO) 0.5 K/uL (1.0-5.5); LYMPHOCYTES % (AUTO) 8.7 % (20.5-51.5); MEAN CORPUSCULAR HEMOGLOBIN 33 pg (27-31); MEAN CORPUSCULAR HGB CONC 34 % (32-36); MEAN CORPUSCULAR VOLUME 97 fL (79.0-98.0); MONOCYTES # (AUTO) 0.5 K/uL (0.0-1.0); MONOCYTES % (AUTO) 9.5 % (1.7-9.3); NEUTROPHILS # (AUTO) 4.6 K/uL (1.8-7.7); NEUTROPHILS % (AUTO) 79.5 % (40.0-70.0); PLATELET COUNT (AUTO) 165 K/uL (130-430); RED BLOOD CELL COUNT(AUTO) 3.74 MIL/uL (4.2-6.2); WHITE BLOOD COUNT (AUTO) 5.7 K/uL (4.8-10.8)
[2022-03-09 11:08] LABS: CALCIUM 8.7 mg/dL (8.4-11.0); CHLORIDE 100 mmol/L (98-107); CREATININE 0.48 mg/dL (0.55-1.30); GLUCOSE 107 mg/dL (70-99); POTASSIUM 3.4 mmol/L (3.5-5.1); UREA NITROGEN, BLOOD 19 mg/dL (8-21)
--- NOTE | 2022-03-09 11:10 | NUR ---
Pt with histologic technician. via chrissy. Frequent urination.
[2022-03-09 11:13] LABS: ALANINE AMINOTRANSFERASE 10 U/L (12-78); ALBUMIN 2.7 g/dL (3.4-4.8); ASPARTATE AMINOTRANSFERASE 14 U/L (10-37); TOTAL BILIRUBIN 0.6 mg/dL (0.0-1.0)
[2022-03-09 11:13] LABS: BILIRUBIN,URINE NEGATIVE (NEGATIVE); BLOOD, URINE NEGATIVE (NEGATIVE); CLARITY/URINE CLEAR (CLEAR); COLOR,URINE YELLOW (YELLOW); GLUCOSE,URINE NEGATIVE (NEGATIVE); KETONES,URINE TRACE (NEGATIVE); LEUKOCYTE ESTERASE ,URINE NEGATIVE (NEGATIVE); NITRITE, URINE POSITIVE (NEGATIVE); PH,URINE 6.5 (5.0-8.0); PROTEIN URINE NEGATIVE (NEGATIVE); UROBILINOGEN,URINE 0.2 (0.2-1.0)
--- NOTE | 2022-03-09 11:15 | NUR ---
Toradol injectable given IM per MD Dunham order.
[2022-03-09 11:30] LABS: ANION GAP < 3 (5-15)
--- NOTE | 2022-03-09 11:41 | NUR ---
Returns from radiology.
[2022-03-09 12:00] LABS: BACTERIA,URINE MODERATE /HPF (None Seen); RBC,URINE 0-3 /HPF (0-3); WBC,URINE 0-3 /HPF (0-3)
--- NOTE | 2022-03-09 12:30 | NUR ---
DAUGHTER CALLED AND ALL QUESTIONS ANSWERED. DR BREWER SPEAKING WITH DAUGHTER AT THIS TIME.
--- NOTE | 2022-03-09 12:44 | NUR ---
Pt resting in bed without signs of neuro deficit. Pt requesting food intake. will provide lunch.
[2022-03-09] MEDS ORDERED: iohexoL 300 mgI/mL, 150 ML INFUS..BTL IV ONE (13:38)
--- NOTE | 2022-03-09 13:54 | NUR ---
Consent obtained, Radiology contacted to proceed with CT w contrast.
--- NOTE | 2022-03-09 15:28 | NUR ---
Pt resting in bed without complaint. VSS NAD.
--- NOTE | 2022-03-09 16:41 | NUR ---
Pt incontinent soiled linens briefs changed, cleansed and repositioned patient. 4 liters oxygen 92% aaox4. HX COPD.
--- NOTE | 2022-03-09 17:36 | NUR ---
TERE OBTAINED AND SENT TO LAB LABELED
[2022-03-09] MEDS ORDERED: HYDROcodone/ACETAMIN 7.5-325 MG TAB PO PRN (20:45)
--- NOTE | 2022-03-09 20:51 | NUR ---
Admit bed requested Patient will be admitted to care of . Admitted to MED SURGE/ OBSERVATION unit. Diagnosis PAIN, UNCONTROLLED Inpatient (Yes or No) Y Observation (Yes or No) Y Orientation concerns or request close to nursing station (Yes or No) N Covid Status NEGATIVE On vent or bipap N Isolation requirements N Needs a sitter N From Home (Yes or if No enter name of facility) Requires Dialysis (Yes or No) N Med Rec Completed (Yes of No) Y
[2022-03-09] MEDS ORDERED: ACETAMINOPHEN 325 MG TABLET PO PRN (21:00)
[2022-03-09 21:40] VITALS: BP_SYST 146
--- NOTE | 2022-03-09 21:40 | NUR ---
Patient will be admitted to care of [facility]. Admitted to medical/surgical unit. Will go to room 104A. Belongings list completed. Complete and up to date summary report printed. SBAR report to be given at bedside with opportunity for questions.
[2022-03-10 00:34] VITALS: BP_SYST 104
--- NOTE | 2022-03-10 07:00 | NUR ---
Report received from maintenance technician 3rd shift RN for continuity of care. Patient stable.
[2022-03-10 08:00] VITALS: BP_SYST 155
[2022-03-10] MEDS ORDERED: BACL10TA PO (10:54)
[2022-03-10] MEDS ORDERED: CLOP75TA32 PO (10:54)
[2022-03-10] MEDS ORDERED: FURO-150 PO (10:54)
[2022-03-10] MEDS ORDERED: METO50TA7 PO (10:54)
[2022-03-10] MEDS ORDERED: AMLO5TAB4 PO (10:54)
[2022-03-10] MEDS ORDERED: ACET325T53 PO (10:54)
[2022-03-10] MEDS: LIDOCAINE PATCH 5% 1 EA TP SCH (10:59)
[2022-03-10] MEDS ORDERED: FUROSEMIDE 20 MG TABLET PO PRN (11:00)
[2022-03-10] MEDS ORDERED: ACETAMINOPHEN 325 MG TABLET PO PRN (11:00)
[2022-03-10] MEDS ORDERED: FUROSEMIDE 20 MG TABLET PO SCH (11:00)
[2022-03-10] MEDS: KETOROLAC TROMETHAMINE 15 MG VIAL IVP PRN (11:11)
[2022-03-10] MEDS ORDERED: METOPROLOL SUCCINATE 50 MG TAB.SR.24H (TOPROL XL) PO ONE (11:45)
[2022-03-10] MEDS ORDERED: CLOPIDOGREL BISULFATE 75 MG TABLET PO ONE (11:45)
[2022-03-10] MEDS ORDERED: amLODIPine BESYLATE 5 MG TABLET PO ONE (11:45)
[2022-03-10 12:00] VITALS: BP_SYST 148
--- NOTE | 2022-03-10 14:35 | NUR ---
CONSULTATION PAGED/CALLED Reason for Consultation: []fx vertebrae Person Who was Notified: []lucretia Consulting Physician: [] Dr. Emeli Caputo Photography Assistant Specialty: []Ortho Ordering Physician: []Dr. Hull
--- NOTE | 2022-03-10 14:50 | NUR ---
CONSULTATION PAGED/CALLED Reason for Consultation: []parasite Person Who was Notified: []Sussy Consulting Physician: [] Dr. Caceres Appliance Sales Associate Specialty: []Infectious Ordering Physician: []Dr. Hull
[2022-03-10] MEDS: MILK OF MAGNESIA 30 ML UDC PO PRN (14:55)
[2022-03-10] MEDS ORDERED: BACLOFEN 10 MG TABLET PO PRN (15:00)
[2022-03-10 18:29] VITALS: BP_SYST 136
--- NOTE | 2022-03-10 19:11 | NUR ---
Patient wanted sleeping pill. Dr. Hull made aware. New orders noted.
--- NOTE | 2022-03-10 19:30 | NUR ---
OPENING NOTE REPORT RECEIVED FROM DAYSHIFT NURSE. PATIENT RECEIVED LYING IN BED, AWAKE, WATCHING TV. NO S/S OF ACUTE DISTRESS. BREATHING EVEN AND UNLABORED. HOB RAISED, NASAL CANULA ATTACHED PROPERLY, ON 4L OF OXYGEN. IV SITE PATENT, NO SIGNS OF INFILTRATION OR INFECTION NOTED. CALL LIGHT WITH PATIENT. BED ALARM ON. BED IS LOCKED AND AT LOWEST POSITION. WILL CONTINUE TO MONITOR.
--- NOTE | 2022-03-10 19:44 | NUR ---
Report given to shift coordinator RN for continuity of care. Patient stable condition. No distress noted.
[2022-03-10 20:00] VITALS: BP_SYST 131; BP_SYST 147
[2022-03-10] MEDS: metroNIDAZOLE 500 mg/NS 100 ML IV SCH (21:28)
[2022-03-10] MEDS: ACETAMINOPHEN 325 MG TABLET PO PRN (22:11)
--- NOTE | 2022-03-10 23:00 | NUR ---
INCONTINENT CARE PATIENT CLEANED BY RN AND CLIENT RELATIONSHIP CONSULTANT AT THIS TIME. PATIENT COMPLAIN OF DISCOMFORT WHEN MOVED AROUND BUT PLACED IN A COMFORTABLE POSITION. REFUSING PAIN MEDS AT THIS TIME. WILL CONTINUE TO MONITOR.
[2022-03-11] VITALS: BP_SYST 135
[2022-03-11] MEDS: KETOROLAC TROMETHAMINE 15 MG VIAL IVP PRN ×2 (02:16→19:56)
--- NOTE | 2022-03-11 03:00 | NUR ---
ROUNDS PATIENT IN BED, RESTING. NO SIGNS OF DISCOMFORT. ALL NEEDS MET. WILL CONTINUE TO MONITOR .
[2022-03-11] MEDS: metroNIDAZOLE 500 mg/NS 100 ML IV SCH ×3 (05:28→21:04)
--- NOTE | 2022-03-11 06:07 | NUR ---
CLOSING NOTE PATIENT IN BED, RESTING COMFORTABLY. NO S/S OF ACUTE DISTRESS. BREATHING EVEN AND UNLABORED. HOB RAISED, NASAL CANULA ATTACHED PROPERLY, ON 4L OF OXYGEN. IV SITE PATENT, NO SIGNS OF INFILTRATION OR INFECTION NOTED. ALL NEEDS MET THROUGHOUT SHIFT. FALL, SAFETY PRECAUTIONS MAINTAINED THROUGHOUT SHIFT. WILL CONTINUE TO MONITOR UNTIL PATIENT CARE IS ENDORSED TO ONCOMING DAYSHIFT NURSE.
[2022-03-11 07:47] LABS: CHLORIDE 99 mmol/L (98-107); CREATININE 0.44 mg/dL (0.55-1.30); GLUCOSE 111 mg/dL (70-99); POTASSIUM 3.6 mmol/L (3.5-5.1); UREA NITROGEN, BLOOD 14 mg/dL (8-21)
[2022-03-11 08:00] VITALS: BP_SYST 157
--- NOTE | 2022-03-11 08:00 | NUR ---
MORNING ROUNDS: PATIENT AWAKE DURING ROUNDS.IV SALINE LOCK AT LEFT AC INTACT. O2 4L/MIN.WITH GOOD SATURATION. CALL LIGHT WITH IN REACH. BED LOCKED AT LOWEST POSITION. NO DISTRESS.
[2022-03-11 08:09] LABS: ANION GAP 0 (5-15); CALCIUM 8.4 mg/dL (8.4-11.0)
[2022-03-11] MEDS: LIDOCAINE PATCH 5% 1 EA TP SCH (09:55)
[2022-03-11] MEDS: amLODIPine BESYLATE 5 MG TABLET PO SCH (09:55)
[2022-03-11] MEDS: METOPROLOL SUCCINATE 50 MG TAB.SR.24H (TOPROL XL) PO SCH (09:59)
[2022-03-11] MEDS: CLOPIDOGREL BISULFATE 75 MG TABLET PO SCH (09:59)
--- NOTE | 2022-03-11 14:35 | NUR ---
TO NUCLEAR MEDICINE: PATIENT TO NUCLEAR MEDICINE VIA WHEELCHAIR.STABLE.
--- NOTE | 2022-03-11 17:00 | NUR ---
BACK FROM NUCLEAR MEDICINE: PATIENT'S IV OUT. ANOTHER IV RE INSERTED AT LEFT HAND USING BUTTERFLY.PUT PATIENT TO BED.
[2022-03-11 17:30] VITALS: BP_SYST 135
--- NOTE | 2022-03-11 18:30 | NUR ---
EVENING ROUNDS: PATIENT ATE A SANDWICH AND A JUICE. NOT HUNGRY THIS TIME WHEN DINNER TRAY WAS SERVED. CALL LIGHT WITH IN REACH. BED LOCKED AT LOWEST POSITION. FAMILY AT THE BEDSIDE. NO DISTRESS.
--- NOTE | 2022-03-11 19:15 | NUR ---
OPENING NOTE REPORT RECEIVED FROM DAYSNJFT NURSE. PATIENT RECEIVED LYING IN BED, AWAKE, PATIENT'S DAUGHTER AT BEDSIDE. NO S/S OF ACUTE DISTRESS. BREATHING EVEN AND UNLABORED. HOB RAISED. HOB RAISED. NASAL CANULA ATTACHED PROPERLY. IV SITE PATENT, NO SIGNS OF INFILTRATION OR INFECTION NOTED. SKIN WARM AND DRY TO TOUCH. CALL LIGHT WITH PATIENT. BED ALARM ON. BED IS LOCKED AND AT LOWEST POSITION. WILL CONTINUE TO MONITOR.
[2022-03-11 20:00] VITALS: BP_SYST 126
[2022-03-11] MEDS: MELATONIN 5 MG TABLET PO PRN (21:04)
--- NOTE | 2022-03-11 23:00 | NUR ---
PERICARE PATIENT CLEANED BY RN AND EXPLORATION MANAGER AT THIS TIME. ALL NEEDS MET. WILL MONITOR.
[2022-03-12 01:00] VITALS: BP_SYST 118
--- NOTE | 2022-03-12 03:00 | NUR ---
ROUNDS PATIENT IN BED RESTING COMFORTABLY. NO SIGNS OF DISCOMFORT NOTED. WILL CONTINUE TO MONITOR.
[2022-03-12] MEDS: metroNIDAZOLE 500 mg/NS 100 ML IV SCH ×3 (05:09→21:16)
--- NOTE | 2022-03-12 06:06 | NUR ---
CLOSING NOTE PATIENT IN BED, SLEEPING COMFORTABLY. NO S/S OF ACUTE DISTRESS. BREATHING EVEN AND UNLABORED. HOB RAISED, NASAL CANULA ATTACHED PROPERLY, ON 4L OF OXYGEN. IV SITE PATENT,NO SIGNS OF INFILTRATION OR INFECTION NOTED. ALL NEEDS MET THROUGHOUT SHIFT. FALL, SAFETY PRECAUTIONS MAINTAINED THROUGHOUT SHIFT. WILL CONTINUE TO MONITOR UNTIL PATIENT CARE IS ENDORSED TO ONCOMING DAYSHIFT NURSE.
--- NOTE | 2022-03-12 08:00 | NUR ---
MORNING ROUNDS: PATIENT FAST ASLEEP ON THE BED. RECEIVED REPORT FROM NIGHT NURSE JORDAN. O2 4L/MIN.NON LABORED.CALL LIGHT WITH IN REACH. BED LOCKED AT LOWEST POSITION. STABLE.
[2022-03-12 08:05] VITALS: BP_SYST 148
[2022-03-12] MEDS: CLOPIDOGREL BISULFATE 75 MG TABLET PO SCH (09:27)
[2022-03-12] MEDS: LIDOCAINE PATCH 5% 1 EA TP SCH (09:28)
[2022-03-12] MEDS: amLODIPine BESYLATE 5 MG TABLET PO SCH (09:28)
[2022-03-12] MEDS: METOPROLOL SUCCINATE 50 MG TAB.SR.24H (TOPROL XL) PO SCH (09:28)
--- NOTE | 2022-03-12 10:20 | NUR ---
ASSISTED TO CHAIR: PUT PATIENT TO CHAIR WITH 2 STAFF ASSISTING. NO ACUTE DISTRESS.
[2022-03-12] MEDS ORDERED: SODIUM PHOSPHATE,MONO-DIBASIC 133 ML ENEMA RC ONE (10:30)
[2022-03-12] MEDS ORDERED: traMADol HCL HCL 50 MG TABLET (ULTRAM) PO PRN (10:30)
--- NOTE | 2022-03-12 13:38 | NUR ---
FLEET ENEMA: FLEET ENEMA RENDERED SUCCESSFULLY.
[2022-03-12] MEDS: MILK OF MAGNESIA 30 ML UDC PO PRN (13:53)
--- NOTE | 2022-03-12 14:25 | NUR ---
BEDSIDE COMMODE: ASSISTED PATIENT TO BEDSIDE COMMODE. HAD MEDIUM SIZE HARD DARK STOOLS X3.ALONG WITH SOFT DARK GREENISH STOOLS. WITH MINIMAL BLOOD TINGE NOTED,DUE TO BIG HEMORRHOIDS. NO ACTIVE BLEEDING NOTED.
[2022-03-12 16:00] VITALS: BP_SYST 125
--- NOTE | 2022-03-12 18:50 | NUR ---
EVENING ROUNDS: FAMILY AT THE BEDSIDE. PATIENT ATE MINIMAL DINNER. IV ANTIBIOTICS ON GOING. CALL LIGHT WITH IN REACH. BED LOCKED AT LOWEST POSITION. BED ALARM ON. MAINTAINED ON 4L/MIN OF OXYGEN. NOT IN ANY DISTRESS.
--- NOTE | 2022-03-12 19:30 | NUR ---
OPENING NOTES: Patient received from Jaqui AM shift nurse. Patient is AA&Ox4 able to make needs known, with family at bedside, denies any pain or discomfort at this time. Chest rise is even and unlabored on 4L via NC. Normal heart sounds noted and patient is on Med-surg monitoring. Patient is currently stable at this time and will resume care and provide continuity of care. Safety measures are in place as per protocol and patient has call light within reach. Will continue to monitor throughout the shift.
[2022-03-12 20:00] VITALS: BP_SYST 120
[2022-03-12] MEDS: KETOROLAC TROMETHAMINE 15 MG VIAL IVP PRN (21:21)
[2022-03-12] MEDS ORDERED: MELATONIN 5 MG TABLET PO ONE (21:52)
[2022-03-12] MEDS: MELATONIN 5 MG TABLET PO PRN (21:54)
[2022-03-13] VITALS: BP_SYST 126
--- NOTE | 2022-03-13 00:45 | NUR ---
PATIENT RESTING: Patient resting quietly. No acute distress noted. Vital signs within normal range.
[2022-03-13] MEDS: metroNIDAZOLE 500 mg/NS 100 ML IV SCH ×3 (05:47→22:16)
[2022-03-13 08:00] VITALS: BP_SYST 130
[2022-03-13 08:03] LABS: ANION GAP 1 (5-15); CALCIUM 8.2 mg/dL (8.4-11.0); CHLORIDE 106 mmol/L (98-107); CREATININE 0.45 mg/dL (0.55-1.30); GLUCOSE 107 mg/dL (70-99); POTASSIUM 4.2 mmol/L (3.5-5.1); UREA NITROGEN, BLOOD 24 mg/dL (8-21)
[2022-03-13] MEDS: CLOPIDOGREL BISULFATE 75 MG TABLET PO SCH (09:56)
[2022-03-13] MEDS: LIDOCAINE PATCH 5% 1 EA TP SCH (09:56)
[2022-03-13] MEDS: POLYETHYLENE GLYCOL 3350, 17 GM/ POWD.PACK PO SCH (09:57)
[2022-03-13] MEDS: amLODIPine BESYLATE 5 MG TABLET PO SCH (09:57)
[2022-03-13] MEDS: METOPROLOL SUCCINATE 50 MG TAB.SR.24H (TOPROL XL) PO SCH (09:57)
[2022-03-13 11:37] VITALS: BP_SYST 130
[2022-03-13] MEDS ORDERED: TRAM50TA2 PO (12:19)
[2022-03-13] MEDS ORDERED: Melatonin PO (13:23)
[2022-03-13] MEDS ORDERED: Lidocaine Patch 5% TP (13:23)
--- NOTE | 2022-03-13 15:08 | NUR ---
Patient was seen for OT eval and treatment. Tolerated eval and treatment. pls see OT evaluation and treatment notes for more details. Pt. TLSO brace doesn't fit. Nursing informed and requested for bigger back brace. Phys. Therapist also notified.
--- NOTE | 2022-03-13 15:48 | NUR ---
Home health and DME have been task waiting for agency to be assigned , jack morris sent to [facility] dept for review
[2022-03-13 17:05] VITALS: BP_SYST 137
--- NOTE | 2022-03-13 18:00 | NUR ---
Handoff has been given to Tabatha
--- NOTE | 2022-03-13 18:24 | NUR ---
Miss Fowler has been assessed as indicated. She's had no c/o pain this shift. except when changing position. She has walked with PT. An attempt was made to fit her with a TSLO brace, the size was inadequate. No larger braces were found in the store room here in the hospital. Her grand daughter was made aware that she would be DC when she had a back brace in place. Her family did call this afternoon and was made aware that she will be DC today
[2022-03-13 20:00] VITALS: BP_SYST 132
[2022-03-13] MEDS ORDERED: MELATONIN 5 MG TABLET PO ONE (22:40)
[2022-03-13] MEDS: MELATONIN 5 MG TABLET PO PRN (23:00)
[2022-03-14] VITALS: BP_SYST 124
[2022-03-14] MEDS: metroNIDAZOLE 500 mg/NS 100 ML IV SCH ×2 (06:16→13:57)
[2022-03-14] MEDS: CLOPIDOGREL BISULFATE 75 MG TABLET PO SCH (08:44)
[2022-03-14] MEDS: METOPROLOL SUCCINATE 50 MG TAB.SR.24H (TOPROL XL) PO SCH (08:44)
[2022-03-14] MEDS: POLYETHYLENE GLYCOL 3350, 17 GM/ POWD.PACK PO SCH (08:45)
[2022-03-14] MEDS: amLODIPine BESYLATE 5 MG TABLET PO SCH (08:46)
[2022-03-14] MEDS: LIDOCAINE PATCH 5% 1 EA TP SCH (08:46)
[2022-03-14 09:27] VITALS: BP_SYST 144
--- NOTE | 2022-03-14 10:46 | NUR ---
Vicenta brace has been approved auth #[id number] will be deliver to bedside by [employer]
[2022-03-14] MEDS: ACETAMINOPHEN 325 MG TABLET PO PRN (10:50)
[2022-03-14 11:46] VITALS: BP_SYST 134
--- NOTE | 2022-03-14 13:46 | NUR ---
ROLA BRACE DELIVERED BY [employer] HAS BEEN FITTED ON THE PATIENT. RN WAS INSTRUCTED IN DONNING AND DOFFING. PATIENT TOLERATES IT WELL.
--- NOTE | 2022-03-14 15:37 | NUR ---
Discharge appointments and vendors arranged by [facility] Isabel Root [phone] Dr[address] [facility] will call with date and time Orthopedic surgeon Dr. Caputo or L provider [facility] will call with date and time [employer] auth# [id number] jewitt brace will be deliver to bedside [phone] auth# [id number] [facility] will call and schedule visit. Please call Patient Support Center [phone] for worsening symptoms or trouble getting your medicine. For care needs when provider office is closed, contact Jeffrey [facility] at [phone] or Rusty [facility] [phone].
--- NOTE | 2022-03-14 16:21 | NUR ---
rn notes patient to be dc. back home. has her brace installed and educated. to be picked up by family member. has all the paperworks at this time. iv removed, no bleeding noted. No personal belongings missing.
== END 2022-03-14 17:35 | disposition home health service (06) | DRG 543 ==
LOC: SED 09:58 → SMU 20:42
PROVIDERS: ADMIT Internal Medicine; ATTEND Internal Medicine
DX: M48.54XA Collapsed vertebra, not elsewhere classified, thoracic region, initial encounter for fracture (principal); J96.11 Chronic respiratory failure with hypoxia; K57.92 Diverticulitis of intestine, part unspecified, without perforation or abscess without bleeding; J96.12 Chronic respiratory failure with hypercapnia; N39.0 Urinary tract infection, site not specified; J44.9 Chronic obstructive pulmonary disease, unspecified; I48.91 Unspecified atrial fibrillation; M81.0 Age-related osteoporosis without current pathological fracture; I25.10 Atherosclerotic heart disease of native coronary artery without angina pectoris; M54.10 Radiculopathy, site unspecified; K52.9 Noninfective gastroenteritis and colitis, unspecified; Z20.822 Contact with and (suspected) exposure to COVID-19; Z88.4 Allergy status to anesthetic agent; Z88.8 Allergy status to other drugs, medicaments and biological substances; Z79.01 Long term (current) use of anticoagulants; Z79.1 Long term (current) use of non-steroidal anti-inflammatories (NSAID); Z79.899 Other long term (current) drug therapy
CPT/HCPCS: 36415; 71045; 71250-TC; 71275; 72072-TC; 72131; 76376; 78226; 80048; 80053; 81000; 84484; 85025; 87177; 93005; 96374; 97110-GO; 97110-GP; 97112-GP; 97116-GP; 97530-GO; 97530-GP; 99285; A9537; J0696; J1885; J3490; J7060; Q9967